=== PATIENT | male | born 1950 | race Caucasian/White ===

== ENCOUNTER 2017-11-07 22:49 | Emergency (ER) | payer MEDICARE, OTHER ==
[2017-11-07] MEDS ORDERED: cloNIDine 0.1 MG Tab PO ONE (23:38)
--- NOTE | 2017-11-07 23:39 | EDM.PDOC ---
ED HPI GENERAL MEDICAL PROBLEM - General Chief Complaint: Cardiovascular Problem Stated Complaint: BLOOD PRESSURE IS REALLY HIGH Time Seen by Provider: 11/07/17 23:01 Source of Information: Reports: Patient, Family History Limitations: Reports: No Limitations - History of Present Illness INITIAL COMMENTS - FREE TEXT/NARRATIVE: This is a 67-year-old male. He comes in tonight because his blood pressure at home was 200/100. This all came about because he has been having nasal congestion for the last several months. He states he uses Afrin nasal spray multiple times a day to open up his nose. He thought that maybe his losartan was causing this nasal congestion and so he stopped it about a week ago. It has not changed his nasal congestion at all. The patient states he has lots of allergies and that's why he uses the Afrin nasal spray. I explained to him that the nose gets addicted to the Afrin and that is why it stays congested. When he arrives to the ER his blood pressure is 165/89. He denies any fever or chills he denies any headache he denies any chest pain. The patient states he has not seen anyone for this nasal congestion and just been trying to treat it himself. But due to his blood pressure going up he comes to the ER. Around 9 PM this evening because his blood pressure was up he took a losartan 50 mg before coming to the ER. - Related Data Allergies Allergy/AdvReac Type Severity Reaction Status Date / Time No Known Allergies Allergy Verified 11/07/17 23:02 Home Meds: Home Meds Metoprolol Tartrate [Lopressor] 150 mg PO DAILY 10/17/15 [History] metFORMIN [Glucophage XR] 500 mg PO BID 10/17/15 [History] Aspirin 81 mg PO DAILY 11/07/17 [History] Cyanocobalamin/FA/Pyridoxine [Folbee] 1 each PO DAILY 11/07/17 [History] Losartan [Cozaar] 50 mg PO DAILY 11/07/17 [History] Amoxicillin/Potassium Clav [Augmentin 875-125 Tablet] 1 each PO BID #20 tablet 11/08/17 [Rx] Past Medical History Cardiovascular History: Reports: Hypertension - Past Surgical History Cardiovascular Surgical History: Reports: Coronary Artery Bypass Musculoskeletal Surgical History: Reports: Knee Replacement Social & Family History - Tobacco Use Smoking Status *Q: Former Smoker Used Tobacco, but Quit: Yes Month/Year Tobacco Last Used: 19 - Caffeine Use Caffeine Use: Reports: Soda - Recreational Drug Use Recreational Drug Use: No ED ROS GENERAL - Review of Systems Review Of Systems: See Below Constitutional: Denies: Fever, Chills HEENT: Reports: Rhinitis, Sinus Problem Respiratory: Denies: Shortness of Breath, Cough Cardiovascular: Denies: Chest Pain Endocrine: Reports: No Symptoms GI/Abdominal: Denies: Abdominal Pain, Nausea, Vomiting Skin: Reports: No Symptoms Neurological: Reports: No Symptoms Psychiatric: Reports: No Symptoms Hematologic/Lymphatic: Reports: No Symptoms ED EXAM, GENERAL - Physical Exam Exam: See Below Exam Limited By: No Limitations General Appearance: Alert, WD/WN, No Apparent Distress Eye Exam: Bilateral Eye: Normal Inspection Ears: Normal External Exam, Normal Canal, Normal TMs Nose: Nasal Swelling, Nasal Drainage, Other (His nasal passages are edematous, he has that typical smell of a sinus infection) Throat/Mouth: Normal Inspection, Normal Lips, Normal Oropharynx, Normal Voice, No Airway Compromise Head: Normocephalic Neck: Supple Respiratory/Chest: No Respiratory Distress, Lungs Clear, Normal Breath Sounds Cardiovascular: Regular Rate, Rhythm, No Murmur Back Exam: Full Range of Motion Extremities: Normal Inspection, Normal Range of Motion Neurological: Alert, Oriented Psychiatric: Normal Affect, Normal Mood Skin Exam: Warm, Dry Course - Vital Signs Last Recorded V/S: Last Vital Signs Temp 99.4 F 11/07/17 22:59 Pulse 75 11/08/17 00:23 Resp 16 11/08/17 00:23 BP 131/75 11/08/17 00:23 Pulse Ox 94 L 11/08/17 00:23 - Orders/Labs/Meds Meds: Medications Discontinued Medications Generic Name Dose Route Start Last Admin Trade Name Gary PRN Reason Stop Dose Admin Clonidine HCl 0.1 mg 11/07/17 23:38 11/07/17 23:42 Catapres PO 11/07/17 23:39 0.1 mg ONETIME ONE Administration - Re-Assessments/Exams Free Text/Narrative Re-Assessment/Exam: 11/08/17 00:36 The patient's blood pressure dropped very nicely to 135/78 with a 0.1 clonidine. He did blow his nose and his got yellow discharge noted. I went over again that he needs to stop the Afrin nasal spray and will put him on some Claritin without the D. He can also take some Chlor-Trimeton to help with the nasal congestion. And I'm going to place him on antibiotic for his sinus infection. He is going to resume his losartan. Departure - Departure Time of Disposition: 00:37 Disposition: Home, Self-Care 01 Condition: Fair Clinical Impression: Nasal congestion, Elevated blood pressure reading Acute sinusitis Qualifiers: Sinusitis location: unspecified location Recurrence: non-recurrent Qualified Code(s): J01.90 - Acute sinusitis, unspecified Prescriptions: Amoxicillin/Potassium Clav [Augmentin 875-125 Tablet] 1 each PO BID #20 tablet Referrals: PCP,None [Primary Care Provider] - Forms: ED Department Discharge Additional Instructions: Tomorrow get the antibiotic and started, resume your losartan and take it faithfully, stop the Afrin nasal spray and realized her nose is going to be congested for 4-5 days as it clears out of the Afrin nasal spray, you may use Claritin plain without the D and also Chlor-Trimeton to help with the nasal congestion, follow-up with your doctor if the nasal congestion does not resolve after the antibiotics are finished, return to the ER if needed
[2017-11-08 00:24] VITALS: BP 131/75
== END 2017-11-08 00:51 | disposition home or self-care (01) ==
LOC: JD.ED 22:49
DX: J01.90 Acute sinusitis, unspecified (principal); I10 Essential (primary) hypertension; Z79.84 Long term (current) use of oral hypoglycemic drugs; Z79.82 Long term (current) use of aspirin; Z79.899 Other long term (current) drug therapy; Z87.891 Personal history of nicotine dependence
CPT/HCPCS: 99283; A9270

== ENCOUNTER 2017-12-17 16:57 | Emergency (ER) | payer MEDICARE, OTHER ==
[2017-12-17 17:08] VITALS: BP 145/89
--- NOTE | 2017-12-17 17:10 | EDM.PDOC ---
ED HPI GENERAL MEDICAL PROBLEM - General Chief Complaint: Chest Pain Stated Complaint: CHEST PAINS/SHORTNESS OF BREATH Time Seen by Provider: 12/17/17 17:09 Source of Information: Reports: Patient - History of Present Illness INITIAL COMMENTS - FREE TEXT/NARRATIVE: Patient is here today for evaluation of chest and upper abdominal pain 2 weeks. He states that he has had this intermittently over the past 2 weeks he is unable to describe the nature other than this sharp and intermittent. Patient states that occasionally Mylanta will make this better. Activity does not worsen it. Occasionally gets worse if he eats. He denies any nausea/ vomiting/change in bowel habits currently but did have a episode of vomiting approximately 2 weeks ago after eating bologna and he feels that is when the symptoms started.. Has a history of CAD, had an ND with CABG in 1999. Chest Pain Score (Numeric/FACES): 5 Abdomen Pain Score (Numeric/FACES): 5 - Related Data Allergies Allergy/AdvReac Type Severity Reaction Status Date / Time cholestrol pill Allergy Hives Uncoded 12/17/17 17:04 Home Meds: Home Meds Metoprolol Tartrate [Lopressor] 100 mg PO DAILY 10/17/15 [History] metFORMIN [Glucophage XR] 500 mg PO BID 10/17/15 [History] Aspirin 81 mg PO DAILY 11/07/17 [History] Cyanocobalamin/FA/Pyridoxine [Folbee] 1 each PO DAILY 11/07/17 [History] Losartan [Cozaar] 50 mg PO DAILY 11/07/17 [History] Metoprolol Tartrate 50 mg PO DAILY 12/17/17 [History] Past Medical History Cardiovascular History: Reports: Hypertension - Past Surgical History Cardiovascular Surgical History: Reports: Coronary Artery Bypass Musculoskeletal Surgical History: Reports: Knee Replacement Social & Family History - Caffeine Use Caffeine Use: Reports: Soda ED ROS GENERAL - Review of Systems Review Of Systems: See Below Constitutional: Reports: Night Sweats. Denies: Fever, Chills, Malaise, Weakness , Fatigue, Diaphoresis, Decreased Appetite HEENT: Reports: No Symptoms Respiratory: Denies: Shortness of Breath, Pleuritic Chest Pain, Cough Cardiovascular: Reports: Chest Pain, Dyspnea on Exertion, Edema. Denies: Blood Pressure Problem, Claudication, Lightheadedness, Palpitations, PND, Syncope Endocrine: Reports: No Symptoms GI/Abdominal: Reports: Abdominal Pain. Denies: Constipation, Diarrhea, Decreased Appetite, Nausea, Vomiting : Reports: No Symptoms Musculoskeletal: Reports: No Symptoms Skin: Reports: No Symptoms Neurological: Reports: No Symptoms ED EXAM, GENERAL - Physical Exam Exam: See Below Exam Limited By: No Limitations General Appearance: Alert, WD/WN, No Apparent Distress Ears: Normal External Exam, Normal Canal, Normal TMs Throat/Mouth: Normal Inspection, Normal Oropharynx Neck: Normal Inspection, Supple, Non-Tender Respiratory/Chest: No Respiratory Distress, Lungs Clear, Normal Breath Sounds Cardiovascular: Regular Rate, Rhythm, No Murmur GI/Abdominal: Normal Bowel Sounds, Soft, Non-Tender Neurological: Alert, Oriented Psychiatric: Normal Affect, Normal Mood Skin Exam: Warm, Dry, Intact Lymphatic: No Adenopathy EKG INTERPRETATION EKG Date: 12/17/17 Time: 17:05 Rhythm: NSR Rate (Beats/Min): 73 EKG Interpretation Comments: Reviewed with Dr Ramirez Course - Vital Signs Last Recorded V/S: Last Vital Signs Temp 100.8 F H 12/17/17 17:04 Pulse 72 12/17/17 17:04 Resp 22 H 12/17/17 17:04 BP 145/89 H 12/17/17 17:04 Pulse Ox 96 12/17/17 17:04 - Orders/Labs/Meds Orders: Active Orders 24 hr Category Date Time Status CXR [Chest 2V] [CR] Stat Exams 12/17/17 17:26 Taken UA W/MICROSCOPIC [URIN] Stat Lab 12/17/17 18:57 Ordered Labs: Laboratory Tests 12/17/17 12/17/17 12/17/17 Range/Units 17:05 17:05 17:05 WBC 9.59 H (4.23-9.07) K/mm3 RBC 4.52 L (4.63-6.08) M/mm3 Hgb 14.4 (13.7-17.5) gm/L Hct 41.2 (40.1-51.0) % MCV 91.2 (79.0-92.2) fl MCH 31.9 (25.7-32.2) pg MCHC 35.0 (32.2-35.5) g/dl RDW Std Deviation 45.1 H (35.1-43.9) fL Plt Count 353 H (163-337) K/mm3 MPV 10.0 (9.4-12.3) fl Neutrophils % (Manual) 50 (40-60) % Band Neutrophils % 1 (0-10) % Lymphocytes % (Manual) 39 (20-40) % Atypical Lymphs % 0 % Monocytes % (Manual) 8 (2-10) % Eosinophils % (Manual) 2 (0.8-7.0) % Basophils % (Manual) 0 L (0.2-1.2) Platelet Estimate Adequate RBC Morph Comment Normal Sodium 134 L (136-145) mEq/L Potassium 4.3 (3.5-5.1) mEq/L Chloride 100 (98-107) mEq/L Carbon Dioxide 22 (21-32) mEq/L Anion Gap 16.3 H (5-15) BUN 11 (7-18) mg/dL Creatinine 1.1 (0.7-1.3) mg/dL Est Cr Clr Drug Dosing 63.91 mL/min Estimated GFR (MDRD) > 60 (>60) mL/min BUN/Creatinine Ratio 10.0 L (14-18) Glucose 102 (80-115) mg/dL Calcium 9.2 (8.5-10.1) mg/dL Magnesium 1.9 (1.8-2.4) mg/dl Total Bilirubin 0.5 (0.2-1.0) mg/dL GGT (15-85) U/L AST 58 H (15-37) U/L ALT 79 H (16-63) U/L Alkaline Phosphatase 64 (46-116) U/L Troponin I < 0.017 (0.00-0.056) ng/mL C-Reactive Protein < 0.2 (<1.0) mg/dL Total Protein 7.9 (6.4-8.2) g/dl Albumin 3.4 (3.4-5.0) g/dl Globulin 4.5 gm/dL Albumin/Globulin Ratio 0.8 L (1-2) Lipase 387 (73-393) U/L Urine Color (Yellow) Urine Appearance (Clear) Urine pH (5.0-8.0) Ur Specific [place] (1.005-1.030) Urine Protein (Negative) Urine Glucose (UA) (Negative) Urine Ketones (Negative) Urine Occult Blood (Negative) Urine Nitrite (Negative) Urine Bilirubin (Negative) Urine Urobilinogen (0.2-1.0) Ur Leukocyte Esterase (Negative) Urine RBC (0-5) /hpf Urine WBC (0-5) /hpf Ur Epithelial Cells (0-5) /hpf Urine Bacteria (FEW) /hpf Urine Mucus (FEW) /hpf 12/17/17 12/17/17 Range/Units 17:05 18:57 WBC (4.23-9.07) K/mm3 RBC (4.63-6.08) M/mm3 Hgb (13.7-17.5) gm/L Hct (40.1-51.0) % MCV (79.0-92.2) fl MCH (25.7-32.2) pg MCHC (32.2-35.5) g/dl RDW Std Deviation (35.1-43.9) fL Plt Count (163-337) K/mm3 MPV (9.4-12.3) fl Neutrophils % (Manual) (40-60) % Band Neutrophils % (0-10) % Lymphocytes % (Manual) (20-40) % Atypical Lymphs % % Monocytes % (Manual) (2-10) % Eosinophils % (Manual) (0.8-7.0) % Basophils % (Manual) (0.2-1.2) Platelet Estimate RBC Morph Comment Sodium (136-145) mEq/L Potassium (3.5-5.1) mEq/L Chloride (98-107) mEq/L Carbon Dioxide (21-32) mEq/L Anion Gap (5-15) BUN (7-18) mg/dL Creatinine (0.7-1.3) mg/dL Est Cr Clr Drug Dosing mL/min Estimated GFR (MDRD) (>60) mL/min BUN/Creatinine Ratio (14-18) Glucose (80-115) mg/dL Calcium (8.5-10.1) mg/dL Magnesium (1.8-2.4) mg/dl Total Bilirubin (0.2-1.0) mg/dL GGT 73 (15-85) U/L AST (15-37) U/L ALT (16-63) U/L Alkaline Phosphatase (46-116) U/L Troponin I (0.00-0.056) ng/mL C-Reactive Protein (<1.0) mg/dL Total Protein (6.4-8.2) g/dl Albumin (3.4-5.0) g/dl Globulin gm/dL Albumin/Globulin Ratio (1-2) Lipase (73-393) U/L Urine Color Yellow (Yellow) Urine Appearance Clear (Clear) Urine pH 5.5 (5.0-8.0) Ur Specific [place] > or = 1.030 (1.005-1.030) Urine Protein Negative (Negative) Urine Glucose (UA) Negative (Negative) Urine Ketones Negative (Negative) Urine Occult Blood Negative (Negative) Urine Nitrite Negative (Negative) Urine Bilirubin Negative (Negative) Urine Urobilinogen 0.2 (0.2-1.0) Ur Leukocyte Esterase Negative (Negative) Urine RBC 0-5 (0-5) /hpf Urine WBC 0-5 (0-5) /hpf Ur Epithelial Cells Not seen (0-5) /hpf Urine Bacteria Few (FEW) /hpf Urine Mucus Moderate H (FEW) /hpf Meds: Medications Discontinued Medications Generic Name Dose Route Start Last Admin Trade Name Freq PRN Reason Stop Dose Admin Al Hydroxide/Mg Hydroxide 30 0 ml 12/17/17 17:26 12/17/17 17:47 ml/ Lidocaine HCl 15 ml PO 12/17/17 17:27 45 ml ONETIME ONE Administration - Radiology Interpretation Free Text/Narrative:: CXR demonstrates mild cardiomegaly. Wires from previous CABG. No acute pathology or infiltrates. Official radiologist pending, CXR was reviewed with Dr Ramirez. - Re-Assessments/Exams Free Text/Narrative Re-Assessment/Exam: Patient's current pain is mild per his report and off to his left upper chest. It does not radiate. He is not diaphoretic or short of breath. States the pain is very mild and he declines medication for this. No acute changes on EKG. Will get basic lab work and troponin as well as chest x-ray. Will also have him drink a GI cocktail to see if this improves his pain. 12/17/17 17:41 WBC 9,590 with 50% neutrophils and 1% band. Troponin is negative. CRP <0.2. Lipase is normal. Liver enzymes are mildly elevated, patient reports that this is chronic and his PCP has evaluated this. Patient's symptoms are certainly more consistent with GERD/gastritis. Will have patient start [id number] omeprazole on a daily basis. He is to follow-up with his primary provider within the next week. Return to emergency room if needed. 12/17/17 19:34 Departure - Departure Time of Disposition: 19:37 Disposition: Home, Self-Care 01 Condition: Good Clinical Impression: Atypical chest pain, Epigastric abdominal pain Instructions: Food Choices for Gastroesophageal Reflux Disease, Adult, Easy-to- Read, Nonspecific Chest Pain Referrals: PCP,None [Primary Care Provider] - Forms: ED Department Discharge Additional Instructions: You were evaluated in the emergency room for chest and abdominal pain today. The workup of your heart was essentially negative. I would like to start [id number] Prilosec (omeprazole) 20 mg daily 30 minutes before breakfast. Avoid spicy or greasy foods. Try to limit your soda intake. Do not eat or drink 2 hours before bedtime. Follow-up with your primary provider within the next 1-2 weeks or certainly return to the emergency room if needed. - My Orders Last 24 Hours: My Active Orders 12/17/17 17:26 CXR [Chest 2V] [CR] Stat 12/17/17 18:57 UA W/MICROSCOPIC [URIN] Stat - Assessment/Plan Last 24 Hours: My Active Orders 12/17/17 17:26 CXR [Chest 2V] [CR] Stat 12/17/17 18:57 UA W/MICROSCOPIC [URIN] Stat
[2017-12-17] MEDS: Alum Hydrox/Mag Hydrox/Simeth 30 ML, Lidocaine 2% 15 ML PO ONE ×2 (17:47)
--- NOTE | 2017-12-18 06:56 | CR ---
Chest: Two views of the chest were obtained. Comparison: No prior chest x-ray is available. Heart size and mediastinum are within normal limits. Prior sternotomy is noted for CABG. Lungs are clear with no acute parenchymal densities. Bony structures appear within normal limits for the patient's age. Impression: 1. Nothing acute is appreciated on two-view chest x-ray. Diagnostic code #2
== END 2017-12-17 19:47 | disposition home or self-care (01) ==
LOC: JD.ED 16:57
DX: R07.89 Other chest pain (principal); R10.13 Epigastric pain; I10 Essential (primary) hypertension; I25.810 Atherosclerosis of coronary artery bypass graft(s) without angina pectoris; Z88.8 Allergy status to other drugs, medicaments and biological substances; Z79.899 Other long term (current) drug therapy; Z79.82 Long term (current) use of aspirin; Z79.84 Long term (current) use of oral hypoglycemic drugs
CPT/HCPCS: 36415; 71046; 80053; 81001; 82977; 83690; 83735; 84484; 85007; 85027; 86140; 93005; 99285; A9270

== ENCOUNTER 2020-04-13 06:27 | Day surgery (SDC) | payer MEDICARE, OTHER ==
[~2020-04-13 06:27] MED LIST: Lactated Ringers 1,000 ML IV SCH; Lidocaine 1%/Sod Bicarbonate in NS 8.4% 1 ML Syringe IDERM PRN; Sodium Chloride 0.9% 10 ML Syringe FLUSH PRN
[2020-04-13] MEDS ORDERED: Lidocaine 1% 4 ML ONE (06:39)
[2020-04-13] MEDS ORDERED: Midazolam 1 MG/ML 2 ML SDV ONE (06:39)
[2020-04-13] MEDS ORDERED: Lactated Ringers 1,000 ML ONE (06:39)
[2020-04-13] MEDS ORDERED: Propofol 200 MG/20 ML SDV ONE (06:39)
[2020-04-13] MEDS ORDERED: ceFAZolin 1 GM Vial ONE ×2 (06:39→07:32)
[2020-04-13] MEDS ORDERED: Ondansetron 4 MG/2 ML SDV ONE ×2 (06:39→07:19)
[2020-04-13] MEDS ORDERED: fentaNYL 250 MCG/5 ML SDV ONE (06:40)
[2020-04-13] MEDS ORDERED: Lidocaine 1% 2 ML ONE (06:40)
[2020-04-13] MEDS ORDERED: Bupivacaine 0.25% 10 ML SDV ONE (06:42)
[2020-04-13] MEDS ORDERED: Scopolamine 1.5 MG Transdermal Patch TOP SCH (06:42)
[2020-04-13] MEDS ORDERED: Ketamine 500 mg/10 ML MDV ONE (07:26)
[2020-04-13] MEDS ORDERED: Ondansetron 4 MG/2 ML SDV IVPUSH PRN (08:14)
[2020-04-13] MEDS ORDERED: HYDROmorphone 0.5 MG/0.5 ML Syringe IVPUSH PRN (08:14)
[2020-04-13] MEDS ORDERED: fentaNYL 100 MCG/2 ML SDV IVPUSH PRN (08:14)
--- NOTE | 2020-04-13 08:14 | PCM.PREANE ---
Preanesthetic Assessment - Procedure Proposed Procedure: Right Cubital Tunnel Release - Anesthesia/Transfusion/Family Hx Anesthesia History: Prior Anesthesia Reaction Type of Anesthesia Reaction: Excessive Nausea/Vomiting Family History of Anesthesia Reaction: No - Review of Systems General: No Symptoms Pulmonary: No Symptoms Cardiovascular: No Symptoms (Active with [place], Dyspnea with heavy activity. ), Other (CABG in 89 no symptoms since, follows with cardiology. ) Gastrointestinal: No Symptoms Neurological: Pre-Existing Deficit, Difficulty Walking (Spinal Stenosis, significant back pain. ) Other: Reports: None (Obesity) - Physical Assessment NPO Status Date: 04/12/20 NPO Status Time: 20:00 Vital Signs: Last Vital Signs Temp 36.3 C 04/13/20 06:35 Pulse 68 04/13/20 06:35 Resp 20 04/13/20 06:35 BP 150/82 H 04/13/20 06:35 Pulse Ox 95 04/13/20 06:35 Height: 1.73 m Weight: 118.841 kg ASA Class: 3 Mental Status: Alert & Oriented x3 Airway Class: Mallampati = 2 Dentition: Reports: [place](s), [place] Thyro-Mental Finger Breadths: 3 Mouth Opening Finger Breadths: 4 ROM/Head Extension: Full Lungs: Clear to Auscultation, Normal Respiratory Effort Cardiovascular: Regular Rate, Regular Rhythm, Murmurs - Lab Values: Laboratory Last Values POC Glucose 179 mg/dL (80-115) H 04/13/20 07:05 SARS-CoV-2 (PCR) Not detected (NOT DETECT) 04/10/20 12:00 MRSA (PCR) Negative 04/04/20 15:12 - Allergies Allergies/Adverse Reactions: Allergies Allergy/AdvReac Type Severity Reaction Status Date / Time fenofibrate Allergy Rash Verified 04/12/20 12:14 - Anesthesia Plan Pre-Op Medication Ordered: Anxiolytic Beta Baldomero: Metoprolol Med Last Dose Date: 04/13/20 Med Last Dose Time: 05:30 - Acknowledgements Anesthesia Type Planned: General Anesthesia Pt an Appropriate Candidate for the Planned Anesthesia: Yes Alternatives and Risks of Anesthesia Discussed w Pt/Guardian: Yes Pt/Guardian Understands and Agrees with Anesthesia Plan: Yes PreAnesthesia Questionnaire HEENT History: Reports: Allergic Rhinitis, Hard of Hearing Cardiovascular History: Reports: High Cholesterol, Hypertension Respiratory History: Reports: None Gastrointestinal History: Reports: None Genitourinary History: Reports: Other (See Below) Other Genitourinary History: frequency INSURANCE CHECKER History: Reports: None Neurological History: Reports: Other (See Below) Other Neuro History: spinal stenosis, cubital tunnel syndrome Psychiatric History: Reports: None Endocrine/Metabolic History: Reports: Diabetes, Type II, Obesity/BMI 30+ Hematologic History: Reports: Other (See Below) Other Hematologic History: easily bruises Immunologic History: Reports: None Oncologic (Cancer) History: Reports: None Dermatologic History: Reports: None - Infectious Disease History Infectious Disease History: Reports: None - Past Surgical History HEENT Surgical History: Reports: None Cardiovascular Surgical History: Reports: Coronary Artery Bypass Respiratory Surgical History: Reports: None GI Surgical History: Reports: None Female Surgical History: Reports: None Male Surgical History: Reports: None Endocrine Surgical History: Reports: None Neurological Surgical History: Reports: None Musculoskeletal Surgical History: Reports: Knee Replacement Oncologic Surgical History: Reports: None Dermatological Surgical History: Reports: None - SUBSTANCE USE Smoking Status *Q: Former Smoker Recreational Drug Use History: No - HOME MEDS Home Medications: Home Meds Metoprolol Tartrate [Lopressor] 150 mg PO DAILY 10/17/15 [History] metFORMIN [Glucophage XR] 500 mg PO BID 10/17/15 [History] Aspirin 81 mg PO DAILY 11/07/17 [History] Cyanocobalamin/Folic AC/Vit B6 [Folbee] 1 each PO DAILY 11/07/17 [History] Losartan [Cozaar] 50 mg PO DAILY 11/07/17 [History] Amoxicillin 500 mg PO ASDIRECTED PRN 04/12/20 [History] Acetaminophen/HYDROcodone [[place] 325-5 MG] 1 - 2 tab PO Q6H PRN #30 tablet 04/13/20 [Rx] - CURRENT (IN HOUSE) MEDS Current Meds: Current Medications Lactated Ringer's (Ringers, Lactated) 1,000 mls @ 125 mls/hr IV ASDIRECTED HALLEY Stop: 04/13/20 23:00 Last Admin: 04/13/20 07:00 Dose: 125 mls/hr Documented by: Lidocaine/Sodium Bicarbonate (Buffered Lidocaine 1% In Ns 8.4%) 0.25 ml IDERM ONETIME PRN PRN Reason: Prior to IV Start Stop: 04/13/20 18:00 Last Admin: 04/13/20 07:54 Dose: 0.25 ml Documented by: Scopolamine (Transderm-Scop) 1.5 mg TOP ONETIME HALLEY Last Admin: 04/13/20 07:03 Dose: 1.5 mg Documented by: Sodium Chloride (Saline Flush) 10 ml FLUSH ASDIRECTED PRN PRN Reason: Keep Vein Open Stop: 04/13/20 18:00 Discontinued Medications Bupivacaine HCl (Sensorcaine-Mpf 0.25%) Confirm Administered Dose 20 ml .ROUTE .STK-MED ONE Stop: 04/13/20 06:43 Cefazolin Sodium (Ancef) Confirm Administered Dose 2 gm .ROUTE .STK-MED ONE Stop: 04/13/20 06:40 Cefazolin Sodium (Ancef) Confirm Administered Dose 1 gm .ROUTE .STK-MED ONE Stop: 04/13/20 07:33 Fentanyl (Sublimaze) Confirm Administered Dose 250 mcg .ROUTE .STK-MED ONE Stop: 04/13/20 06:41 Lidocaine HCl (Xylocaine-Mpf 1%) Confirm Administered Dose 4 mls @ as directed .ROUTE .STK-MED ONE Stop: 04/13/20 06:40 Lactated Ringer's (Ringers, Lactated) Confirm Administered Dose 1,000 mls @ as directed .ROUTE .STK-MED ONE Stop: 04/13/20 06:40 Lidocaine HCl (Xylocaine-Mpf 1%) Confirm Administered Dose 2 mls @ as directed .ROUTE .STK-MED ONE Stop: 04/13/20 06:41 Ketamine HCl (Ketalar) Confirm Administered Dose 500 mg .ROUTE .STK-MED ONE Stop: 04/13/20 07:27 Midazolam HCl (Versed 1 Mg/Ml) Confirm Administered Dose 2 mg .ROUTE .STK-MED ONE Stop: 04/13/20 06:40 Miscellaneous Medication (Phenylephrine 1 Mg/10 Ml-Ns) Confirm Administered Dose 1 mg .ROUTE .STK-MED ONE Stop: 04/13/20 07:25 Ondansetron HCl (Zofran) Confirm Administered Dose 4 mg .ROUTE .STK-MED ONE Stop: 04/13/20 06:40 Ondansetron HCl (Zofran) Confirm Administered Dose 4 mg .ROUTE .STK-MED ONE Stop: 04/13/20 07:20 Propofol (Diprivan 20 Ml) Confirm Administered Dose 400 mg .ROUTE .[facility] ONE Stop: 04/13/20 06:40
[2020-04-13 09:44] VITALS: BP 136/76; PULSE 60
--- NOTE | 2020-04-13 10:26 | PCM48HPAN ---
Post Anesthesia Note - EVALUATION WITHIN 48HRS OF ANESTHETIC Vital Signs in Normal Range: Yes Patient Participated in Evaluation: Yes Respiratory Function Stable: Yes Airway Patent: Yes Cardiovascular Function Stable: Yes Hydration Status Stable: Yes Pain Control Satisfactory: Yes Nausea and Vomiting Control Satisfactory: Yes Mental Status Recovered: Yes Vital Signs: Last Vital Signs Temp 36.7 C 04/13/20 09:15 Pulse 60 04/13/20 09:43 Resp 16 04/13/20 09:43 BP 136/76 04/13/20 09:43 Pulse Ox 96 04/13/20 09:43
--- NOTE | 2020-04-17 17:08 | PCM.OPNOTE ---
- General Post-Op/Procedure Note Date of Surgery/Procedure: 04/13/20 Operative Procedure(s): right ulnar nerve decompression at the elbow Pre Op Diagnosis: right cubital tunnel syndrome Post-Op Diagnosis: Same Anesthesia Technique: General LMA, Local Primary Surgeon: Victoriano Loaiza Anesthesia Provider: Ade Parker Marketing Producer: Kelsi Mendoza in mLs: 5 Complications: None Condition: Good
--- NOTE | 2020-04-20 07:59 | OR ---
DATE OF OPERATION: 04/13/2020 SURGEON: Victoriano Loaiza MD OPERATION PERFORMED: Right ulnar nerve decompression at the elbow. PREOPERATIVE DIAGNOSIS: Right cubital tunnel syndrome. POSTOPERATIVE DIAGNOSIS: Right cubital tunnel syndrome. ANESTHESIA: General LMA with local. ANESTHESIA PROVIDER: Heather Kilpatrick. TECHNICAL RECRUITER: Kelsi Mendoza PA-C. ESTIMATED BLOOD LOSS: 5 mL. COMPLICATIONS: None. CONDITION: Stable. DESCRIPTION OF PROCEDURE: The patient was identified in the preoperative holding area. Proper site was marked and identified by the surgeon. The patient was taken back to the operating theater, where after adequate anesthesia the patient had a nonsterile tourniquet applied to the right upper extremity. He was then sterilely prepped and draped in the usual sterile fashion. OR time-out was performed. The patient received 2 g IV Ancef. Right upper extremity was exsanguinated. Tourniquet was insufflated to 220 mmHg. Standard curvilinear incision was done over the cubital tunnel up to the triceps fascia. The nerve was identified up to the triceps fascia and decompression of the nerve was began up to triceps fascia, making sure proximally that it was free. This was brought down then to the cubital tunnel where the fiber osseous tunnel was opened all the way down to the flexor forearm fascia. It was noted to be completely freed up and had severe scarring noted near the cubital tunnel as well up near the triceps fascia. I did remove a portion of the triceps fascia as it did seem to be catching on. At this time, I brought the elbow through a range of motion. The patient's ulnar nerve was showing no signs of subluxation, so adequate saline was irrigated through the wound. 2-0 Vicryl was used subcutaneously and grace used for closure of the skin. The patient was placed in a sterile soft dressing and a posterior slab splint, and sent to the PACU in stable condition. MMODAL /[id number]
== END 2020-04-13 10:25 | disposition home or self-care (01) ==
LOC: JD.SDS 06:27
PROVIDERS: ATTEND Orthopaedic Surgery
DX: G56.23 Lesion of ulnar nerve, bilateral upper limbs (principal); E78.00 Pure hypercholesterolemia, unspecified; I10 Essential (primary) hypertension; E11.9 Type 2 diabetes mellitus without complications; E66.9 Obesity, unspecified; R97.20 Elevated prostate specific antigen [PSA]; I25.10 Atherosclerotic heart disease of native coronary artery without angina pectoris; Z01.812 Encounter for preprocedural laboratory examination; Z20.828 Contact with and (suspected) exposure to other viral communicable diseases; Z88.8 Allergy status to other drugs, medicaments and biological substances; Z87.891 Personal history of nicotine dependence; Z79.899 Other long term (current) drug therapy; Z79.84 Long term (current) use of oral hypoglycemic drugs; Z79.82 Long term (current) use of aspirin
CPT/HCPCS: 64718; 82962; 87641; A9270; J0690; J2001; J2250; J2370; J2405; J2704; J3010; J3490; J7120; U0002; 01710

== ENCOUNTER 2022-10-30 17:23 | Emergency (ER) | payer MEDICARE, OTHER ==
[2022-10-30 17:35] VITALS: BP 147/65; PULSE 84
[2022-10-30] MEDS ORDERED: Sodium Chloride 0.9% 10 ML Syringe FLUSH PRN (18:16)
[2022-10-30] MEDS ORDERED: Levofloxacin/Dextrose 5%-Water 750 MG in Premix Bag 1 BAG IV ONE (19:32)
[2022-10-30] MEDS ORDERED: Levofloxacin 750 MG Tab PO ONE (19:36)
== END 2022-10-30 20:30 | disposition home or self-care (01) ==
LOC: JD.ED 17:23
DX: N30.01 Acute cystitis with hematuria (principal); N45.3 Epididymo-orchitis; N43.3 Hydrocele, unspecified; E78.00 Pure hypercholesterolemia, unspecified; I10 Essential (primary) hypertension; N40.0 Benign prostatic hyperplasia without lower urinary tract symptoms; E11.9 Type 2 diabetes mellitus without complications; E66.9 Obesity, unspecified; Z88.8 Allergy status to other drugs, medicaments and biological substances; Z86.16 Personal history of COVID-19; Z95.1 Presence of aortocoronary bypass graft; Z68.41 Body mass index [BMI] 40.0-44.9, adult
CPT/HCPCS: 36415; 76870; 80053; 81001; 85025; 86140; 87086; 93975; 99284; A9270

== ENCOUNTER 2023-03-22 13:53 | Emergency (ER) | payer MEDICARE, OTHER ==
[2023-03-22 14:39] LABS: BASOPHILS ABSOLUTE AUTO 0.1 K/mm3 (0.0-0.2); BASOPHILS PERCENT AUTO 1.1 % (0.0-1.0); EOSINOPHILS ABSOLUTE AUTO 0.2 K/mm3 (0.0-0.4); EOSINOPHILS PERCENT AUTO 4.2 % (0.0-6.0); HEMATOCRIT 33.4 % (42.0-52.0); HEMOGLOBIN 11.8 gm/dl (14.0-18.0); IMMATURE GRAN ABSOLUTE AUTO 0.01 K/mm3 (0.00-0.05); IMMATURE GRAN PERCENT AUTO 0.2 % (0.0-0.4); LYMPHOCYTES ABSOLUTE AUTO 1.8 K/mm3 (1.0-4.8); LYMPHOCYTES PERCENT AUTO 34.5 % (24.0-44.0); MEAN CORPUSCULAR HEMOGLOBIN 31.5 pg (28.0-32.0); MEAN CORPUSCULAR HGB CONC 35.3 g/dl (32.0-36.0); MEAN CORPUSCULAR VOLUME 89.1 fl (83.0-99.0); MEAN PLATELET VOLUME 9.8 fl (9.4-12.4); MONOCYTES ABSOLUTE AUTO 0.5 K/mm3 (0.0-0.8); MONOCYTES PERCENT AUTO 9.6 % (0.0-8.0); NEUTROPHILS ABSOLUTE AUTO 2.6 K/mm3 (1.8-7.7); NEUTROPHILS PERCENT AUTO 50.4 % (41.0-71.0); PLATELET COUNT,PLT 165 K/mm3 (150-400); RED BLOOD CELL COUNT 3.75 M/mm3 (4.52-5.90); WHITE BLOOD CELL COUNT,WBC 5.22 K/mm3 (3.9-11.3)
[2023-03-22 15:01] LABS: A/G RATIO 0.7 (1-2); ALBUMIN 3.1 g/dl (3.4-5.0); ANION GAP 17.2 (5-15); BILIRUBIN TOTAL 0.6 mg/dL (0.2-1.0); BUN/CREATININE RATIO 16.4 (14-18); CALCIUM 8.9 mg/dL (8.5-10.1); CREATININE 1.1 mg/dL (0.7-1.3); EST CRCL DRUG DOSING (CG) 59.59 mL/min; MAGNESIUM 1.5 mg/dL (1.8-2.4); POTASSIUM,K 4.2 mEq/L (3.5-5.1); PROTEIN TOTAL,TP 7.5 g/dl (6.4-8.2)
[2023-03-22] MEDS ORDERED: Magnesium Oxide 400 MG Tab PO ONE (15:07)
[2023-03-22 16:57] VITALS: BP 122/76; PULSE 67
== END 2023-03-22 16:53 | disposition home or self-care (01) ==
LOC: JD.ED 13:53
DX: R25.2 Cramp and spasm (principal); E83.42 Hypomagnesemia; E78.00 Pure hypercholesterolemia, unspecified; I10 Essential (primary) hypertension; E11.9 Type 2 diabetes mellitus without complications; E66.9 Obesity, unspecified; Z68.39 Body mass index [BMI] 39.0-39.9, adult; Z86.16 Personal history of COVID-19; Z95.1 Presence of aortocoronary bypass graft; Z91.013 Allergy to seafood; Z88.8 Allergy status to other drugs, medicaments and biological substances; Z79.82 Long term (current) use of aspirin; Z79.899 Other long term (current) drug therapy
CPT/HCPCS: 36415; 80053; 83735; 85025; 93971; 99284; A9270

== ENCOUNTER 2024-01-17 09:48 | Emergency (ER) | payer MEDICARE, OTHER ==
[2024-01-17 11:01] LABS: BASOPHILS PERCENT AUTO 0.5 % (0.0-1.0); EOSINOPHILS PERCENT AUTO 0.6 % (0.0-6.0); HEMATOCRIT 34.9 % (42.0-52.0); HEMOGLOBIN 11.7 gm/dl (14.0-18.0); IMMATURE GRAN ABSOLUTE AUTO 0.04 K/mm3 (0.00-0.05); IMMATURE GRAN PERCENT AUTO 0.6 % (0.0-0.4); LYMPHOCYTES ABSOLUTE AUTO 0.5 K/mm3 (1.0-4.8); LYMPHOCYTES PERCENT AUTO 7.2 % (24.0-44.0); MEAN CORPUSCULAR HEMOGLOBIN 31.7 pg (28.0-32.0); MEAN CORPUSCULAR HGB CONC 33.5 g/dl (32.0-36.0); MEAN PLATELET VOLUME 10.1 fl (9.4-12.4); MONOCYTES ABSOLUTE AUTO 0.9 K/mm3 (0.0-0.8); MONOCYTES PERCENT AUTO 13.9 % (0.0-8.0); NEUTROPHILS ABSOLUTE AUTO 4.8 K/mm3 (1.8-7.7); NEUTROPHILS PERCENT AUTO 77.2 % (41.0-71.0); PLATELET COUNT,PLT 137 K/mm3 (150-400); RED BLOOD CELL COUNT 3.69 M/mm3 (4.52-5.90); WHITE BLOOD CELL COUNT,WBC 6.27 K/mm3 (3.9-11.3)
[2024-01-17 11:16] LABS: LACTIC ACID 3.1 mmol/L (0.4-2.0)
[2024-01-17 11:18] LABS: MEAN CORPUSCULAR VOLUME 94.6 fl (83.0-99.0)
[2024-01-17 11:21] LABS: A/G RATIO 0.7 (1-2); ALBUMIN 2.8 g/dl (3.4-5.0); ANION GAP 15.1 (5-15); BILIRUBIN TOTAL 1.3 mg/dL (0.2-1.0); C-REACTIVE PROTEIN 7.33 mg/dL (<0.30); EST CRCL DRUG DOSING (CG) 64.6 mL/min; MAGNESIUM 1.3 mg/dL (1.8-2.4); POTASSIUM,K 4.1 mEq/L (3.5-5.1); PROTEIN TOTAL,TP 6.9 g/dl (6.4-8.2)
[2024-01-17] MEDS: Sodium Chloride 0.9% 1,000 ML IV SCH ×2 (11:21→12:07)
[2024-01-17] MEDS: Aspirin 81 MG Tab.Chew PO ONE (11:27)
[2024-01-17 11:30] LABS: APPEARANCE,URINE SLT CLOUDY (Clear); BILIRUBIN,URINE NEGATIVE (Negative); COLOR,URINE DARK YELLOW (Yellow); GLUCOSE,URINE NEGATIVE (Negative); KETONES,URINE TRACE (Negative); LEUKOCYTE ESTERASE,URINE 1+ (Negative); NITRITE,URINE POSITIVE (Negative); OCCULT BLOOD,URINE TRACE-INTACT (Negative); PROTEIN,URINE 1+ (Negative); UROBILINOGEN,URINE 0.2 (0.2-1.0)
[2024-01-17 11:48] LABS: WBC,URINE 40-50 /hpf (0-5)
[2024-01-17] MEDS ORDERED: Furosemide 20 MG/2 ML VIAL IVPUSH ONE (11:48)
[2024-01-17 11:49] LABS: BACTERIA,URINE MANY /hpf (FEW); MUCUS,URINE FEW /hpf (FEW)
[2024-01-17] MEDS: cefTRIAXone 2 GM in Sodium Chloride 0.9% 100 ML IV ONE (12:07)
[2024-01-17 14:36] VITALS: BP 107/70; PULSE 72
== END 2024-01-17 13:50 | disposition home or self-care (01) ==
LOC: JD.ED 09:48
DX: I11.0 Hypertensive heart disease with heart failure (principal); I50.9 Heart failure, unspecified; N30.01 Acute cystitis with hematuria; N41.9 Inflammatory disease of prostate, unspecified; N45.3 Epididymo-orchitis; T50.905A Adverse effect of unspecified drugs, medicaments and biological substances, initial encounter; I25.10 Atherosclerotic heart disease of native coronary artery without angina pectoris; E11.9 Type 2 diabetes mellitus without complications; E66.9 Obesity, unspecified; Z86.16 Personal history of COVID-19; Z79.899 Other long term (current) drug therapy; Z79.84 Long term (current) use of oral hypoglycemic drugs; Z88.8 Allergy status to other drugs, medicaments and biological substances; Z91.013 Allergy to seafood
CPT/HCPCS: 36415; 51798; 71045; 80053; 81001; 83036; 83605; 83735; 83880; 84484; 85025; 86140; 87086; 93005; 96361; 96365; 99285; A9270; J0696; J3490; J7030; 87088; 87186

== ENCOUNTER 2024-04-12 23:19 | Emergency (ER) | payer MEDICARE, OTHER ==
[2024-04-12 23:55] LABS: APPEARANCE,URINE CLEAR (Clear); BILIRUBIN,URINE NEGATIVE (Negative); COLOR,URINE YELLOW (Yellow); GLUCOSE,URINE NEGATIVE (Negative); KETONES,URINE 1+ (Negative); LEUKOCYTE ESTERASE,URINE 1+ (Negative); NITRITE,URINE NEGATIVE (Negative); OCCULT BLOOD,URINE NEGATIVE (Negative); PH,URINE 5.5 (5.0-8.0); PROTEIN,URINE NEGATIVE (Negative); UROBILINOGEN,URINE 0.2 (0.2-1.0)
[2024-04-13 00:06] LABS: BACTERIA,URINE RARE /hpf (FEW); EPITHELIAL CELLS,URINE 0-5 /hpf (0-5); MUCUS,URINE NOT SEEN /hpf (FEW); RBC,URINE 0-5 /hpf (0-5)
[2024-04-13] MEDS: Furosemide 40 MG/4 ML VIAL IVPUSH ONE (00:13)
[2024-04-13] MEDS: Sodium Chloride 0.9% 10 ML Syringe FLUSH PRN (00:13)
[2024-04-13 00:39] LABS: BASOPHILS PERCENT AUTO 0.4 % (0.0-1.0); EOSINOPHILS PERCENT AUTO 0.4 % (0.0-6.0); HEMATOCRIT 24.2 % (42.0-52.0); IMMATURE GRAN ABSOLUTE AUTO 0.03 K/mm3 (0.00-0.05); IMMATURE GRAN PERCENT AUTO 0.6 % (0.0-0.4); LYMPHOCYTES ABSOLUTE AUTO 0.6 K/mm3 (1.0-4.8); LYMPHOCYTES PERCENT AUTO 11.4 % (24.0-44.0); MEAN CORPUSCULAR HEMOGLOBIN 30.2 pg (28.0-32.0); MEAN CORPUSCULAR HGB CONC 31.8 g/dl (32.0-36.0); MEAN CORPUSCULAR VOLUME 94.9 fl (83.0-99.0); MONOCYTES ABSOLUTE AUTO 0.4 K/mm3 (0.0-0.8); MONOCYTES PERCENT AUTO 7.8 % (0.0-8.0); NEUTROPHILS ABSOLUTE AUTO 4.2 K/mm3 (1.8-7.7); NEUTROPHILS PERCENT AUTO 79.4 % (41.0-71.0); PLATELET COUNT,PLT 217 K/mm3 (150-400); RED BLOOD CELL COUNT 2.55 M/mm3 (4.52-5.90); WHITE BLOOD CELL COUNT,WBC 5.27 K/mm3 (3.9-11.3)
[2024-04-13 00:55] LABS: HEMOGLOBIN 7.7 gm/dl (14.0-18.0)
[2024-04-13 01:03] LABS: A/G RATIO 0.9 (1-2); ALANINE AMINOTRANSFERASE,ALT 34 U/L (16-63); ALKALINE PHOSPHATASE 48 U/L (46-116); ANION GAP 20.7 (5-15); ASPARTATE AMNIOTRANSFERASE,AST 35 U/L (15-37); BILIRUBIN TOTAL 0.4 mg/dL (0.2-1.0); BLOOD UREA NITROGEN,BUN 19 mg/dL (7-18); BUN/CREATININE RATIO 15.8 (14-18); CALCIUM 8.9 mg/dL (8.5-10.1); CARBON DIOXIDE,CO2 17 mEq/L (21-32); CHLORIDE,CL 105 mEq/L (98-107); CREATININE 1.2 mg/dL (0.7-1.3); ESTIMATED GFR 64 mL/min (>60); GLUCOSE RANDOM 220 mg/dL (70-99); MAGNESIUM 1.3 mg/dL (1.8-2.4); POTASSIUM,K 4.7 mEq/L (3.5-5.1); PROTEIN TOTAL,TP 6.5 g/dl (6.4-8.2); SODIUM,NA 138 mEq/L (136-145)
[2024-04-13 01:04] LABS: TROPONIN I HIGH SENSITIVITY 367 pg/mL (<=76)
[2024-04-13] MEDS: Pantoprazole 40 MG Vial IVPUSH ONE (01:58)
[2024-04-13] MEDS: Iopamidol 612 MG/ML 100 ML Bottle IVPUSH ONE (02:08)
[2024-04-13] MEDS: Magnesium Sulfate/Water Premix 2 GM in Premix Bag 1 BAG IV ONE (02:11)
[2024-04-13 03:41] LABS: INR 1.03; PROTHROMBIN TIME 10.9 SECONDS (9.7-12.0)
[2024-04-13 03:43] LABS: PTT,PARTIAL THROMBOPLSTIN TIME 22.5 SECONDS (21.7-31.4)
[2024-04-13] MEDS: Pantoprazole 80 MG in Sodium Chloride 0.9% 100 ML IV SCH (05:15)
[2024-04-13] MEDS: Sodium Chloride 0.9% 250 ML ONE (05:48)
[2024-04-13] MEDS: Sodium Chloride 0.9% 250 ML IV SCH (05:49)
[2024-04-13 08:09] VITALS: BP 152/83; PULSE 74
== END 2024-04-13 11:30 ==
LOC: JD.ED 23:19
DX: I21.4 Non-ST elevation (NSTEMI) myocardial infarction (principal); K92.2 Gastrointestinal hemorrhage, unspecified; D64.89 Other specified anemias; I85.00 Esophageal varices without bleeding; K74.69 Other cirrhosis of liver; I11.0 Hypertensive heart disease with heart failure; I50.9 Heart failure, unspecified; I25.10 Atherosclerotic heart disease of native coronary artery without angina pectoris; I25.2 Old myocardial infarction; E78.00 Pure hypercholesterolemia, unspecified; E11.51 Type 2 diabetes mellitus with diabetic peripheral angiopathy without gangrene; E66.9 Obesity, unspecified; Z95.1 Presence of aortocoronary bypass graft; Z87.891 Personal history of nicotine dependence; Z86.16 Personal history of COVID-19; Z79.899 Other long term (current) drug therapy; Z79.84 Long term (current) use of oral hypoglycemic drugs; Z88.8 Allergy status to other drugs, medicaments and biological substances; Z91.013 Allergy to seafood
CPT/HCPCS: 36415; 36430; 71046; 74177; 80053; 81001; 82272; 83735; 83880; 84484; 85025; 85610; 85730; 86850; 86900; 86901; 86922; 87086; 87088; 87186; 93005; 96361; 96365; 96366; 96367; 96375; 96376; 99285; J1940; J2470; J3475; J3490; J7050; P9016; Q9967

== ENCOUNTER 2024-04-26 17:08 | Emergency (ER) | payer MEDICARE, OTHER ==
[2024-04-26 18:24] LABS: BASOPHILS PERCENT AUTO 0.6 % (0.0-1.0); EOSINOPHILS PERCENT AUTO 0.6 % (0.0-6.0); HEMATOCRIT 25.7 % (42.0-52.0); HEMOGLOBIN 8.3 gm/dl (14.0-18.0); IMMATURE GRAN ABSOLUTE AUTO 0.01 K/mm3 (0.00-0.05); IMMATURE GRAN PERCENT AUTO 0.2 % (0.0-0.4); LYMPHOCYTES ABSOLUTE AUTO 0.6 K/mm3 (1.0-4.8); LYMPHOCYTES PERCENT AUTO 12.3 % (24.0-44.0); MEAN CORPUSCULAR HGB CONC 32.3 g/dl (32.0-36.0); MEAN CORPUSCULAR VOLUME 89.9 fl (83.0-99.0); MEAN PLATELET VOLUME 10.5 fl (9.4-12.4); MONOCYTES ABSOLUTE AUTO 0.4 K/mm3 (0.0-0.8); MONOCYTES PERCENT AUTO 8.7 % (0.0-8.0); NEUTROPHILS ABSOLUTE AUTO 3.9 K/mm3 (1.8-7.7); NEUTROPHILS PERCENT AUTO 77.6 % (41.0-71.0); PLATELET COUNT,PLT 220 K/mm3 (150-400); RED BLOOD CELL COUNT 2.86 M/mm3 (4.52-5.90); WHITE BLOOD CELL COUNT,WBC 4.97 K/mm3 (3.9-11.3)
[2024-04-26 18:51] LABS: A/G RATIO 0.8 (1-2); ALBUMIN 2.9 g/dl (3.4-5.0); ANION GAP 20.5 (5-15); BILIRUBIN TOTAL 0.4 mg/dL (0.2-1.0); BUN/CREATININE RATIO 17.9 (14-18); CALCIUM 8.6 mg/dL (8.5-10.1); CREATININE 1.4 mg/dL (0.7-1.3); EST CRCL DRUG DOSING (CG) 46.14 mL/min; POTASSIUM,K 4.5 mEq/L (3.5-5.1); PROTEIN TOTAL,TP 6.4 g/dl (6.4-8.2)
[2024-04-26 19:08] LABS: CORONAVIRUS COVID-19 NAA NEGATIVE (NEGATIVE); INFLUENZA A NAA NEGATIVE (NEGATIVE); RESPIRATORY SYNCYTIAL VIR NAA NEGATIVE (NEGATIVE)
[2024-04-26 19:42] LABS: APPEARANCE,URINE CLEAR (Clear); BILIRUBIN,URINE NEGATIVE (Negative); COLOR,URINE YELLOW (Yellow); GLUCOSE,URINE NEGATIVE (Negative); KETONES,URINE 1+ (Negative); LEUKOCYTE ESTERASE,URINE NEGATIVE (Negative); NITRITE,URINE NEGATIVE (Negative); OCCULT BLOOD,URINE TRACE-LYSED (Negative); PH,URINE 5.5 (5.0-8.0); PROTEIN,URINE 1+ (Negative); UROBILINOGEN,URINE 0.2 (0.2-1.0)
[2024-04-26 20:15] LABS: BACTERIA,URINE RARE /hpf (FEW); EPITHELIAL CELLS,URINE 0-5 /hpf (0-5); MUCUS,URINE FEW /hpf (FEW); RBC,URINE NOT SEEN /hpf (0-5)
[2024-04-26] MEDS: Furosemide 40 MG/4 ML VIAL IVPUSH ONE (20:18)
[2024-04-26] MEDS: Sodium Chloride 0.9% 10 ML Syringe FLUSH PRN (20:18)
[2024-04-26] MEDS: Lidocaine 2% 11 ML Jelly Filled Syringe MUCMEM ONE (22:10)
[2024-04-26] MEDS: Metoprolol Tartrate 50 MG Tab PO ONE (22:10)
[2024-04-26] MEDS: Levofloxacin 500 MG Tab PO ONE (22:10)
[2024-04-26] MEDS: metFORMIN 500 MG Tab PO ONE (22:18)
[2024-04-27 00:09] VITALS: BP 120/76; PULSE 67
== END 2024-04-26 23:40 | disposition home or self-care (01) ==
LOC: JD.ED 17:08
DX: I35.0 Nonrheumatic aortic (valve) stenosis (principal); D64.89 Other specified anemias; K92.2 Gastrointestinal hemorrhage, unspecified; R33.9 Retention of urine, unspecified; N21.0 Calculus in bladder; I11.0 Hypertensive heart disease with heart failure; I50.9 Heart failure, unspecified; I25.10 Atherosclerotic heart disease of native coronary artery without angina pectoris; I25.2 Old myocardial infarction; E78.00 Pure hypercholesterolemia, unspecified; E11.9 Type 2 diabetes mellitus without complications; E66.9 Obesity, unspecified; Z95.5 Presence of coronary angioplasty implant and graft; Z86.16 Personal history of COVID-19; Z79.84 Long term (current) use of oral hypoglycemic drugs; Z79.899 Other long term (current) drug therapy; Z88.8 Allergy status to other drugs, medicaments and biological substances; Z91.013 Allergy to seafood; Z68.41 Body mass index [BMI] 40.0-44.9, adult
CPT/HCPCS: 0241U; 36415; 51702; 71045; 80053; 81001; 82272; 83880; 84484; 85025; 93005; 93970; 96374; 99285; A9270; J1940; J3490; 93010; 99284

== ENCOUNTER 2024-04-27 09:30 | Emergency (ER) | payer MEDICARE, OTHER ==
[2024-04-27] MEDS ORDERED: Sodium Chloride 0.9% 10 ML Syringe FLUSH PRN (10:01)
[2024-04-27 10:34] LABS: APPEARANCE,URINE SLT CLOUDY (Clear); BASOPHILS PERCENT AUTO 0.6 % (0.0-1.0); BILIRUBIN,URINE NEGATIVE (Negative); COLOR,URINE YELLOW (Yellow); EOSINOPHILS ABSOLUTE AUTO 0.1 K/mm3 (0.0-0.4); EOSINOPHILS PERCENT AUTO 1.8 % (0.0-6.0); GLUCOSE,URINE NEGATIVE (Negative); HEMATOCRIT 25.8 % (42.0-52.0); HEMOGLOBIN 8.2 gm/dl (14.0-18.0); IMMATURE GRAN ABSOLUTE AUTO 0.01 K/mm3 (0.00-0.05); IMMATURE GRAN PERCENT AUTO 0.2 % (0.0-0.4); KETONES,URINE NEGATIVE (Negative); LEUKOCYTE ESTERASE,URINE 1+ (Negative); LYMPHOCYTES ABSOLUTE AUTO 0.5 K/mm3 (1.0-4.8); LYMPHOCYTES PERCENT AUTO 10.2 % (24.0-44.0); MEAN CORPUSCULAR HEMOGLOBIN 28.5 pg (28.0-32.0); MEAN CORPUSCULAR HGB CONC 31.8 g/dl (32.0-36.0); MEAN CORPUSCULAR VOLUME 89.6 fl (83.0-99.0); MEAN PLATELET VOLUME 9.7 fl (9.4-12.4); MONOCYTES ABSOLUTE AUTO 0.6 K/mm3 (0.0-0.8); MONOCYTES PERCENT AUTO 11.2 % (0.0-8.0); NEUTROPHILS ABSOLUTE AUTO 3.7 K/mm3 (1.8-7.7); NITRITE,URINE NEGATIVE (Negative); OCCULT BLOOD,URINE 3+ (Negative); PH,URINE 5.5 (5.0-8.0); PLATELET COUNT,PLT 230 K/mm3 (150-400); PROTEIN,URINE 1+ (Negative); RED BLOOD CELL COUNT 2.88 M/mm3 (4.52-5.90); UROBILINOGEN,URINE 0.2 (0.2-1.0)
[2024-04-27 10:39] LABS: BACTERIA,URINE FEW /hpf (FEW); EPITHELIAL CELLS,URINE 0-5 /hpf (0-5); MUCUS,URINE FEW /hpf (FEW); RBC,URINE >100 /hpf (0-5)
[2024-04-27 10:58] LABS: A/G RATIO 0.8 (1-2); ALBUMIN 2.9 g/dl (3.4-5.0); ANION GAP 18.1 (5-15); BILIRUBIN TOTAL 0.5 mg/dL (0.2-1.0); BUN/CREATININE RATIO 17.7 (14-18); CALCIUM 8.8 mg/dL (8.5-10.1); CREATININE 1.3 mg/dL (0.7-1.3); EST CRCL DRUG DOSING (CG) 46.35 mL/min; POTASSIUM,K 4.1 mEq/L (3.5-5.1); PROTEIN TOTAL,TP 6.5 g/dl (6.4-8.2)
[2024-04-27 13:01] VITALS: BP 136/77; PULSE 70
== END 2024-04-27 12:35 | disposition critical access hospital (66) ==
LOC: JD.ED 09:30
DX: T83.098A Other mechanical complication of other urinary catheter, initial encounter (principal); D64.89 Other specified anemias; I10 Essential (primary) hypertension; I25.10 Atherosclerotic heart disease of native coronary artery without angina pectoris; E78.00 Pure hypercholesterolemia, unspecified; E11.9 Type 2 diabetes mellitus without complications; E66.9 Obesity, unspecified; Z68.41 Body mass index [BMI] 40.0-44.9, adult; Z86.16 Personal history of COVID-19; Z79.899 Other long term (current) drug therapy; Z79.84 Long term (current) use of oral hypoglycemic drugs; Z91.013 Allergy to seafood; Z88.8 Allergy status to other drugs, medicaments and biological substances
CPT/HCPCS: 36415; 80053; 81001; 85025; 87086; 99284; 99285

== ENCOUNTER 2024-05-07 08:52 | Emergency (ER) | payer MEDICARE, OTHER ==
[2024-05-07 10:23] LABS: BASOPHILS PERCENT AUTO 0.5 % (0.0-1.0); EOSINOPHILS PERCENT AUTO 0.9 % (0.0-6.0); HEMATOCRIT 22.7 % (42.0-52.0); IMMATURE GRAN ABSOLUTE AUTO 0.04 K/mm3 (0.00-0.05); IMMATURE GRAN PERCENT AUTO 0.9 % (0.0-0.4); LYMPHOCYTES ABSOLUTE AUTO 0.4 K/mm3 (1.0-4.8); LYMPHOCYTES PERCENT AUTO 8.6 % (24.0-44.0); MEAN CORPUSCULAR HEMOGLOBIN 27.6 pg (28.0-32.0); MEAN CORPUSCULAR HGB CONC 31.7 g/dl (32.0-36.0); MONOCYTES ABSOLUTE AUTO 0.4 K/mm3 (0.0-0.8); MONOCYTES PERCENT AUTO 8.8 % (0.0-8.0); NEUTROPHILS ABSOLUTE AUTO 3.5 K/mm3 (1.8-7.7); NEUTROPHILS PERCENT AUTO 80.3 % (41.0-71.0); PLATELET COUNT,PLT 283 K/mm3 (150-400); RED BLOOD CELL COUNT 2.61 M/mm3 (4.52-5.90); WHITE BLOOD CELL COUNT,WBC 4.41 K/mm3 (3.9-11.3)
[2024-05-07 10:32] LABS: HEMOGLOBIN 7.2 gm/dl (14.0-18.0)
[2024-05-07 10:47] LABS: A/G RATIO 0.8 (1-2); ANION GAP 18.6 (5-15); BILIRUBIN TOTAL 0.7 mg/dL (0.2-1.0); CALCIUM 8.4 mg/dL (8.5-10.1); CREATININE 1.2 mg/dL (0.7-1.3); EST CRCL DRUG DOSING (CG) 53.83 mL/min; MAGNESIUM 1.1 mg/dL (1.8-2.4); POTASSIUM,K 3.6 mEq/L (3.5-5.1); PROTEIN TOTAL,TP 6.6 g/dl (6.4-8.2)
[2024-05-07] MEDS: Magnesium Sulfate/Water Premix 2 GM/50 ML BAG IV ONE (11:36)
[2024-05-07] MEDS: Sodium Chloride 0.9% 10 ML Syringe FLUSH PRN (11:37)
[2024-05-07] MEDS: Aspirin 81 MG Tab.Chew PO ONE (13:38)
[2024-05-07] MEDS: Sodium Chloride 0.9% 1,000 ML IV SCH (13:39)
[2024-05-07 15:46] VITALS: PULSE 80
[2024-05-07 17:26] VITALS: BP 117/67
== END 2024-05-07 17:38 ==
LOC: JD.ED 08:52
DX: I21.4 Non-ST elevation (NSTEMI) myocardial infarction (principal); I35.0 Nonrheumatic aortic (valve) stenosis; I11.0 Hypertensive heart disease with heart failure; I50.9 Heart failure, unspecified; D64.89 Other specified anemias; I25.10 Atherosclerotic heart disease of native coronary artery without angina pectoris; I10 Essential (primary) hypertension; E11.9 Type 2 diabetes mellitus without complications; E66.9 Obesity, unspecified; Z68.41 Body mass index [BMI] 40.0-44.9, adult; Z91.030 Bee allergy status; Z91.013 Allergy to seafood; Z88.8 Allergy status to other drugs, medicaments and biological substances; Z79.899 Other long term (current) drug therapy; Z79.84 Long term (current) use of oral hypoglycemic drugs; Z79.82 Long term (current) use of aspirin
CPT/HCPCS: 36415; 36430; 71045; 80053; 83735; 83880; 84484; 85025; 86850; 86900; 86901; 86922; 93005; 96361; 96365; 96366; 99285; J3475; J3490; J7030; P9016; A9270-GY

== ENCOUNTER 2024-06-14 17:29 | Inpatient (IN) | payer MEDICARE, OTHER ==
[2024-06-14 19:35] LABS: BASOPHILS PERCENT AUTO 0.9 % (0.0-1.0); EOSINOPHILS ABSOLUTE AUTO 0.2 K/mm3 (0.0-0.4); EOSINOPHILS PERCENT AUTO 3.5 % (0.0-6.0); HEMATOCRIT 27.4 % (42.0-52.0); HEMOGLOBIN 8.7 gm/dl (14.0-18.0); IMMATURE GRAN ABSOLUTE AUTO 0.02 K/mm3 (0.00-0.05); IMMATURE GRAN PERCENT AUTO 0.5 % (0.0-0.4); LYMPHOCYTES ABSOLUTE AUTO 0.6 K/mm3 (1.0-4.8); LYMPHOCYTES PERCENT AUTO 14.8 % (24.0-44.0); MEAN CORPUSCULAR HEMOGLOBIN 27.3 pg (28.0-32.0); MEAN CORPUSCULAR HGB CONC 31.8 g/dl (32.0-36.0); MEAN CORPUSCULAR VOLUME 85.9 fl (83.0-99.0); MEAN PLATELET VOLUME 9.2 fl (9.4-12.4); MONOCYTES ABSOLUTE AUTO 0.5 K/mm3 (0.0-0.8); MONOCYTES PERCENT AUTO 11.8 % (0.0-8.0); NEUTROPHILS PERCENT AUTO 68.5 % (41.0-71.0); PLATELET COUNT,PLT 215 K/mm3 (150-400); RED BLOOD CELL COUNT 3.19 M/mm3 (4.52-5.90); WHITE BLOOD CELL COUNT,WBC 4.33 K/mm3 (3.9-11.3)
[2024-06-14 20:12] LABS: A/G RATIO 0.6 (1-2); ALBUMIN 2.5 g/dl (3.4-5.0); ANION GAP 17.7 (5-15); BILIRUBIN TOTAL 0.6 mg/dL (0.2-1.0); BUN/CREATININE RATIO 15.4 (14-18); CALCIUM 8.6 mg/dL (8.5-10.1); CREATININE 1.3 mg/dL (0.7-1.3); EST CRCL DRUG DOSING (CG) 49.69 mL/min; MAGNESIUM 1.4 mg/dL (1.8-2.4); POTASSIUM,K 3.7 mEq/L (3.5-5.1); PROTEIN TOTAL,TP 6.7 g/dl (6.4-8.2)
[2024-06-14] MEDS ORDERED: Sodium Chloride 0.9% 100 ML IV SCH (20:45)
[2024-06-14] MEDS: Sodium Chloride 0.9% 10 ML Syringe FLUSH PRN (20:48)
[2024-06-14] MEDS: Sodium Chloride 0.9% 500 ML IV ONE (20:48)
[2024-06-14 20:55] LABS: APPEARANCE,URINE CLEAR (Clear); BILIRUBIN,URINE NEGATIVE (Negative); COLOR,URINE YELLOW (Yellow); GLUCOSE,URINE NEGATIVE (Negative); KETONES,URINE NEGATIVE (Negative); LEUKOCYTE ESTERASE,URINE NEGATIVE (Negative); NITRITE,URINE NEGATIVE (Negative); OCCULT BLOOD,URINE NEGATIVE (Negative); PROTEIN,URINE NEGATIVE (Negative); UROBILINOGEN,URINE 0.2 (0.2-1.0)
[2024-06-14] MEDS: Iopamidol 755 Mg/ML 100 ML Bottle IVPUSH ONE (21:03)
[2024-06-14] MEDS ORDERED: Magnesium Sulfate (4.06 MEQ/ML) 5 GM/10 ML SDV IV ONE (22:47)
[2024-06-14 23:07] LABS: INR 1.11; PROTHROMBIN TIME 11.7 SECONDS (9.7-12.0)
[2024-06-14] MEDS: fentaNYL 100 MCG/2 ML SDV IVPUSH ONE (23:38)
[2024-06-14] MEDS: Magnesium Sulfate/Water Premix 2 GM in Premix Bag 1 BAG IV SCH (23:39)
[2024-06-15 04:41] LABS: BASOPHILS PERCENT AUTO 0.7 % (0.0-1.0); EOSINOPHILS ABSOLUTE AUTO 0.1 K/mm3 (0.0-0.4); EOSINOPHILS PERCENT AUTO 3.4 % (0.0-6.0); HEMATOCRIT 25.6 % (42.0-52.0); HEMOGLOBIN 8.2 gm/dl (14.0-18.0); IMMATURE GRAN ABSOLUTE AUTO 0.01 K/mm3 (0.00-0.05); IMMATURE GRAN PERCENT AUTO 0.2 % (0.0-0.4); LYMPHOCYTES ABSOLUTE AUTO 0.7 K/mm3 (1.0-4.8); LYMPHOCYTES PERCENT AUTO 17.4 % (24.0-44.0); MEAN CORPUSCULAR HEMOGLOBIN 27.4 pg (28.0-32.0); MEAN CORPUSCULAR VOLUME 85.6 fl (83.0-99.0); MEAN PLATELET VOLUME 9.3 fl (9.4-12.4); MONOCYTES ABSOLUTE AUTO 0.6 K/mm3 (0.0-0.8); MONOCYTES PERCENT AUTO 13.3 % (0.0-8.0); NEUTROPHILS ABSOLUTE AUTO 2.7 K/mm3 (1.8-7.7); PLATELET COUNT,PLT 218 K/mm3 (150-400); RED BLOOD CELL COUNT 2.99 M/mm3 (4.52-5.90); WHITE BLOOD CELL COUNT,WBC 4.13 K/mm3 (3.9-11.3)
[2024-06-15] MEDS ORDERED: 50% Dextrose in Water 50 ML Syringe IVPUSH PRN (06:03)
[2024-06-15] MEDS ORDERED: Ondansetron 4 MG Tab.DIS PO PRN (08:29)
[2024-06-15] MEDS ORDERED: Morphine 2 MG/ML SYRINGE IVPUSH PRN (08:29)
[2024-06-15] MEDS ORDERED: Acetaminophen 325 MG Tab PO PRN (08:29)
[2024-06-15] MEDS ORDERED: Ondansetron 4 MG/2 ML SDV IV PRN (08:29)
[2024-06-15] MEDS: Tamsulosin 0.4 MG Cap.ER PO SCH (08:53)
[2024-06-15] MEDS: Acetaminophen/HYDROcodone 325-5 MG Tab PO PRN (08:53)
[2024-06-15] MEDS: Metoprolol Succinate 25 MG Tab.ER PO SCH (08:54)
[2024-06-15 10:13] LABS: HEMATOCRIT 24.6 % (42.0-52.0)
[2024-06-15] MEDS: Pantoprazole 40 MG Tab.CR PO SCH (13:18)
[2024-06-15 13:23] LABS: IRON,FE 27 ug/dL (65-175); PERCENT FE SATURATION 10 % (20-55); TRANSFERRIN 209 mg/dL (202-364)
[2024-06-15 13:29] LABS: TOTAL IRON BINDING CAPACITY 261 ug/dL (100-400)
[2024-06-15] MEDS: Sodium Ferric Gluconate Cmplex 125 MG in Sodium Chloride 0.9% 100 ML IV ONE (15:29)
[2024-06-15] MEDS: Insulin Lispro 100 Unit/ML 3 ML KwikPen SUBCUT SCH (17:04)
[2024-06-15 17:12] LABS: HEMOGLOBIN 7.6 gm/dl (14.0-18.0)
[2024-06-15] MEDS: Sodium Chloride 0.9% 250 ML IV SCH (19:41)
[2024-06-15 22:14] LABS: HEMATOCRIT 25.6 % (42.0-52.0); HEMOGLOBIN 8.3 gm/dl (14.0-18.0)
[2024-06-16 04:23] LABS: EOSINOPHILS ABSOLUTE AUTO 0.2 K/mm3 (0.0-0.4); EOSINOPHILS PERCENT AUTO 4.8 % (0.0-6.0); HEMATOCRIT 24.9 % (42.0-52.0); HEMOGLOBIN 8.1 gm/dl (14.0-18.0); IMMATURE GRAN ABSOLUTE AUTO 0.02 K/mm3 (0.00-0.05); IMMATURE GRAN PERCENT AUTO 0.6 % (0.0-0.4); LYMPHOCYTES ABSOLUTE AUTO 0.6 K/mm3 (1.0-4.8); MEAN CORPUSCULAR HEMOGLOBIN 27.4 pg (28.0-32.0); MEAN CORPUSCULAR HGB CONC 32.5 g/dl (32.0-36.0); MEAN CORPUSCULAR VOLUME 84.1 fl (83.0-99.0); MEAN PLATELET VOLUME 9.4 fl (9.4-12.4); MONOCYTES ABSOLUTE AUTO 0.5 K/mm3 (0.0-0.8); MONOCYTES PERCENT AUTO 14.5 % (0.0-8.0); NEUTROPHILS ABSOLUTE AUTO 1.9 K/mm3 (1.8-7.7); NEUTROPHILS PERCENT AUTO 60.1 % (41.0-71.0); PLATELET COUNT,PLT 174 K/mm3 (150-400); RED BLOOD CELL COUNT 2.96 M/mm3 (4.52-5.90); WHITE BLOOD CELL COUNT,WBC 3.11 K/mm3 (3.9-11.3)
[2024-06-16 05:00] LABS: A/G RATIO 0.6 (1-2); ALBUMIN 2.2 g/dl (3.4-5.0); ANION GAP 12.4 (5-15); BUN/CREATININE RATIO 14.4 (14-18); CALCIUM 8.3 mg/dL (8.5-10.1); CREATININE 0.9 mg/dL (0.7-1.3); EST CRCL DRUG DOSING (CG) 71.78 mL/min; MAGNESIUM 1.9 mg/dL (1.8-2.4); POTASSIUM,K 3.4 mEq/L (3.5-5.1); PROTEIN TOTAL,TP 5.7 g/dl (6.4-8.2)
[2024-06-16 10:30] LABS: HEMATOCRIT 28.3 % (42.0-52.0); HEMOGLOBIN 9.3 gm/dl (14.0-18.0)
[2024-06-16] MEDS: Polyethylene Glycol 3350 Powder 17 GM Packet PO ONE (10:31)
[2024-06-16 12:40] VITALS: BP 106/83; PULSE 89
== END 2024-06-16 12:41 | disposition home or self-care (01) | DRG 378 ==
LOC: JD.ED 17:29 → JD.MS 06-15 00:15
PROVIDERS: ADMIT Family Medicine; ATTEND Family Medicine
PROC: 30233N1 Transfusion of Nonautologous Red Blood Cells into Peripheral Vein, Percutaneous Approach (ICD-10-PCS; principal; 2024-06-15)
DX: K62.5 Hemorrhage of anus and rectum (principal); D84.9 Immunodeficiency, unspecified; I10 Essential (primary) hypertension; K76.6 Portal hypertension; E11.9 Type 2 diabetes mellitus without complications; Z66 Do not resuscitate; I50.9 Heart failure, unspecified; I25.10 Atherosclerotic heart disease of native coronary artery without angina pectoris; E78.00 Pure hypercholesterolemia, unspecified; N40.0 Benign prostatic hyperplasia without lower urinary tract symptoms; M19.90 Unspecified osteoarthritis, unspecified site; E66.9 Obesity, unspecified; Z96.659 Presence of unspecified artificial knee joint; D64.89 Other specified anemias; H91.90 Unspecified hearing loss, unspecified ear; H54.7 Unspecified visual loss; M54.9 Dorsalgia, unspecified; G89.29 Other chronic pain; E11.69 Type 2 diabetes mellitus with other specified complication; K62.7 Radiation proctitis; E83.42 Hypomagnesemia; I11.0 Hypertensive heart disease with heart failure; K74.69 Other cirrhosis of liver; C61 Malignant neoplasm of prostate; Z95.2 Presence of prosthetic heart valve; Z95.0 Presence of cardiac pacemaker; Z88.8 Allergy status to other drugs, medicaments and biological substances; Z91.013 Allergy to seafood; Z91.030 Bee allergy status; Z79.84 Long term (current) use of oral hypoglycemic drugs; Z79.82 Long term (current) use of aspirin; Z79.899 Other long term (current) drug therapy; I25.2 Old myocardial infarction; Z86.16 Personal history of COVID-19; Z95.1 Presence of aortocoronary bypass graft; Z68.38 Body mass index [BMI] 38.0-38.9, adult; Z87.891 Personal history of nicotine dependence
CPT/HCPCS: 36415; 72191; 74175; 80053; 81003; 82272; 83690; 83735; 83880; 84484; 85025; 85610; 85730; 86850; 86900; 86901; 86922; 93005; 96361; 96365; 96375; 99285; J3010; J3475; J3490; J7030; Q9967; 36430; 82947; 83540; 84466; 85014; 85018; 93010; 97110-GP; 97116-GP; 97161-GP; 97530-GP; A9270-GY; J1815; J2916; J7050; P9016

== ENCOUNTER 2024-07-03 00:44 | Emergency (ER) | payer MEDICARE, OTHER ==
[2024-07-03 01:13] LABS: BASOPHILS PERCENT AUTO 0.9 % (0.0-1.0); EOSINOPHILS ABSOLUTE AUTO 0.2 K/mm3 (0.0-0.4); EOSINOPHILS PERCENT AUTO 4.8 % (0.0-6.0); HEMATOCRIT 24.1 % (42.0-52.0); HEMOGLOBIN 7.6 gm/dl (14.0-18.0); IMMATURE GRAN ABSOLUTE AUTO 0.03 K/mm3 (0.00-0.05); IMMATURE GRAN PERCENT AUTO 0.7 % (0.0-0.4); LYMPHOCYTES ABSOLUTE AUTO 0.9 K/mm3 (1.0-4.8); LYMPHOCYTES PERCENT AUTO 18.8 % (24.0-44.0); MEAN CORPUSCULAR HEMOGLOBIN 27.4 pg (28.0-32.0); MEAN CORPUSCULAR HGB CONC 31.5 g/dl (32.0-36.0); MEAN PLATELET VOLUME 9.9 fl (9.4-12.4); MONOCYTES ABSOLUTE AUTO 0.6 K/mm3 (0.0-0.8); MONOCYTES PERCENT AUTO 13.5 % (0.0-8.0); NEUTROPHILS ABSOLUTE AUTO 2.8 K/mm3 (1.8-7.7); NEUTROPHILS PERCENT AUTO 61.3 % (41.0-71.0); PLATELET COUNT,PLT 160 K/mm3 (150-400); RED BLOOD CELL COUNT 2.77 M/mm3 (4.52-5.90); WHITE BLOOD CELL COUNT,WBC 4.58 K/mm3 (3.9-11.3)
[2024-07-03 01:32] LABS: A/G RATIO 0.7 (1-2); ALBUMIN 2.7 g/dl (3.4-5.0); ANION GAP 18.8 (5-15); BILIRUBIN TOTAL 0.5 mg/dL (0.2-1.0); BUN/CREATININE RATIO 11.3 (14-18); CALCIUM 8.9 mg/dL (8.5-10.1); CREATININE 1.6 mg/dL (0.7-1.3); EST CRCL DRUG DOSING (CG) 43.09 mL/min; POTASSIUM,K 3.8 mEq/L (3.5-5.1); PROTEIN TOTAL,TP 6.8 g/dl (6.4-8.2)
[2024-07-03 01:44] LABS: C-REACTIVE PROTEIN 0.88 mg/dL (<0.30); MAGNESIUM 1.4 mg/dL (1.8-2.4)
[2024-07-03 02:32] LABS: HEMOGLOBIN A1C 6.7 %
[2024-07-03] MEDS: Metoclopramide 10 MG/2 ML SDV IVPUSH ONE (02:34)
[2024-07-03] MEDS: HYDROmorphone 0.5 MG/0.5 ML Syringe IVPUSH ONE ×2 (02:34→02:54)
[2024-07-03] MEDS: LORazepam 2 MG/ML SDV IVPUSH ONE (02:54)
[2024-07-03] MEDS: Magnesium Sulfate/Water Premix 4 GM in Premix Bag 1 BAG IV ONE (02:54)
[2024-07-03] MEDS: Sodium Chloride 0.9% 1,000 ML IV ONE (02:55)
[2024-07-03 08:04] VITALS: BP 111/55; PULSE 77
== END 2024-07-03 07:45 | disposition home or self-care (01) ==
LOC: JD.ED 00:44
DX: R07.89 Other chest pain (principal); D64.89 Other specified anemias; K62.5 Hemorrhage of anus and rectum; C61 Malignant neoplasm of prostate; I25.10 Atherosclerotic heart disease of native coronary artery without angina pectoris; I25.2 Old myocardial infarction; I10 Essential (primary) hypertension; M19.90 Unspecified osteoarthritis, unspecified site; E11.9 Type 2 diabetes mellitus without complications; E66.9 Obesity, unspecified; Z92.3 Personal history of irradiation; Z95.2 Presence of prosthetic heart valve; Z95.0 Presence of cardiac pacemaker; Z86.16 Personal history of COVID-19; Z95.5 Presence of coronary angioplasty implant and graft; Z96.659 Presence of unspecified artificial knee joint; Z87.891 Personal history of nicotine dependence; Z91.013 Allergy to seafood; Z91.030 Bee allergy status; Z79.82 Long term (current) use of aspirin; Z79.84 Long term (current) use of oral hypoglycemic drugs; Z79.899 Other long term (current) drug therapy; Z68.41 Body mass index [BMI] 40.0-44.9, adult
CPT/HCPCS: 36415; 36430; 71045; 74018; 80053; 82150; 83036; 83735; 83880; 84153; 84484; 85025; 86140; 86850; 86900; 86901; 86922; 93005; 96365; 96366; 96375; 99285; J1171; J2060; J3475; J7030; P9016

== ENCOUNTER 2024-07-30 12:12 | Inpatient (IN) | payer MEDICARE, OTHER ==
[2024-07-30 13:12] LABS: BASOPHILS PERCENT AUTO 0.6 % (0.0-1.0); EOSINOPHILS ABSOLUTE AUTO 0.2 K/mm3 (0.0-0.4); EOSINOPHILS PERCENT AUTO 4.5 % (0.0-6.0); HEMATOCRIT 19.5 % (42.0-52.0); IMMATURE GRAN ABSOLUTE AUTO 0.01 K/mm3 (0.00-0.05); IMMATURE GRAN PERCENT AUTO 0.3 % (0.0-0.4); LYMPHOCYTES ABSOLUTE AUTO 0.5 K/mm3 (1.0-4.8); MEAN CORPUSCULAR HEMOGLOBIN 26.6 pg (28.0-32.0); MEAN CORPUSCULAR HGB CONC 30.3 g/dl (32.0-36.0); MEAN CORPUSCULAR VOLUME 87.8 fl (83.0-99.0); MEAN PLATELET VOLUME 9.7 fl (9.4-12.4); MONOCYTES ABSOLUTE AUTO 0.3 K/mm3 (0.0-0.8); MONOCYTES PERCENT AUTO 9.9 % (0.0-8.0); NEUTROPHILS ABSOLUTE AUTO 2.3 K/mm3 (1.8-7.7); NEUTROPHILS PERCENT AUTO 68.7 % (41.0-71.0); PLATELET COUNT,PLT 140 K/mm3 (150-400); RED BLOOD CELL COUNT 2.22 M/mm3 (4.52-5.90); WHITE BLOOD CELL COUNT,WBC 3.32 K/mm3 (3.9-11.3)
[2024-07-30 13:19] LABS: HEMOGLOBIN 5.9 gm/dl (14.0-18.0)
[2024-07-30 13:39] LABS: A/G RATIO 0.7 (1-2); ALBUMIN 2.5 g/dl (3.4-5.0); ANION GAP 20.7 (5-15); BILIRUBIN TOTAL 0.5 mg/dL (0.2-1.0); BUN/CREATININE RATIO 8.8 (14-18); C-REACTIVE PROTEIN 0.83 mg/dL (<0.30); CALCIUM 8.4 mg/dL (8.5-10.1); CREATININE 1.7 mg/dL (0.7-1.3); POTASSIUM,K 4.7 mEq/L (3.5-5.1)
[2024-07-30 13:49] LABS: INR 1.11; PROTHROMBIN TIME 11.7 SECONDS (9.7-12.0)
[2024-07-30] MEDS: Sodium Chloride 0.9% 10 ML Syringe FLUSH PRN (14:04)
[2024-07-30] MEDS: Iopamidol 755 Mg/ML 100 ML Bottle IVPUSH ONE ×2 (14:04→18:11)
[2024-07-30] MEDS: Sodium Chloride 0.9% 100 ML IV SCH (14:04)
[2024-07-30] MEDS ORDERED: Sodium Chloride 0.9% 100 ML IV SCH (14:15)
[2024-07-30] MEDS: Sodium Chloride 0.9% 1,000 ML IV STA (14:27)
[2024-07-30] MEDS: Oxymetazoline 0.05% Nasal Spray 30 ML Bottle NAS ONE (14:28)
[2024-07-30] MEDS: Sodium Chloride 0.9% 500 ML ONE (16:00)
[2024-07-30 16:49] LABS: APPEARANCE,URINE CLEAR (Clear); BILIRUBIN,URINE NEGATIVE (Negative); COLOR,URINE YELLOW (Yellow); GLUCOSE,URINE NEGATIVE (Negative); KETONES,URINE NEGATIVE (Negative); LEUKOCYTE ESTERASE,URINE NEGATIVE (Negative); NITRITE,URINE NEGATIVE (Negative); OCCULT BLOOD,URINE NEGATIVE (Negative); PH,URINE 5.5 (5.0-8.0); PROTEIN,URINE NEGATIVE (Negative); UROBILINOGEN,URINE 0.2 (0.2-1.0)
[2024-07-30] MEDS: Sodium Chloride 0.9% 10 ML Syringe FLUSH ONE (18:11)
[2024-07-30] MEDS ORDERED: Acetaminophen 325 MG Tab PO PRN (18:19)
[2024-07-30] MEDS ORDERED: 50% Dextrose in Water 50 ML Syringe IVPUSH PRN (18:23)
[2024-07-30] MEDS: Sodium Chloride 0.9% 250 ML IV SCH (18:38)
[2024-07-30] MEDS: Acetaminophen/HYDROcodone 325-5 MG Tab PO ONE ×2 (20:43→20:51)
[2024-07-30] MEDS: Insulin Lispro 100 Unit/ML 3 ML KwikPen SUBCUT SCH (22:38)
[2024-07-31 03:25] LABS: BASOPHILS PERCENT AUTO 1.2 % (0.0-1.0); EOSINOPHILS ABSOLUTE AUTO 0.3 K/mm3 (0.0-0.4); EOSINOPHILS PERCENT AUTO 7.5 % (0.0-6.0); HEMATOCRIT 26.9 % (42.0-52.0); IMMATURE GRAN ABSOLUTE AUTO 0.01 K/mm3 (0.00-0.05); IMMATURE GRAN PERCENT AUTO 0.3 % (0.0-0.4); LYMPHOCYTES ABSOLUTE AUTO 0.7 K/mm3 (1.0-4.8); LYMPHOCYTES PERCENT AUTO 19.6 % (24.0-44.0); MEAN CORPUSCULAR HEMOGLOBIN 28.6 pg (28.0-32.0); MEAN CORPUSCULAR HGB CONC 32.7 g/dl (32.0-36.0); MEAN CORPUSCULAR VOLUME 87.3 fl (83.0-99.0); MEAN PLATELET VOLUME 9.2 fl (9.4-12.4); MONOCYTES ABSOLUTE AUTO 0.5 K/mm3 (0.0-0.8); NEUTROPHILS ABSOLUTE AUTO 1.8 K/mm3 (1.8-7.7); NEUTROPHILS PERCENT AUTO 55.4 % (41.0-71.0); PLATELET COUNT,PLT 116 K/mm3 (150-400); RED BLOOD CELL COUNT 3.08 M/mm3 (4.52-5.90); WHITE BLOOD CELL COUNT,WBC 3.32 K/mm3 (3.9-11.3)
[2024-07-31 03:28] LABS: HEMOGLOBIN 8.8 gm/dl (14.0-18.0)
[2024-07-31 04:02] LABS: A/G RATIO 0.7 (1-2); ALBUMIN 2.3 g/dl (3.4-5.0); BILIRUBIN TOTAL 0.7 mg/dL (0.2-1.0); BUN/CREATININE RATIO 9.4 (14-18); CALCIUM 7.9 mg/dL (8.5-10.1); CREATININE 1.6 mg/dL (0.7-1.3); EST CRCL DRUG DOSING (CG) 40.38 mL/min; PROTEIN TOTAL,TP 5.7 g/dl (6.4-8.2)
[2024-07-31] MEDS: Acetaminophen/HYDROcodone 325-5 MG Tab PO PRN ×2 (08:24→16:47)
[2024-07-31] MEDS ORDERED: Acetaminophen/HYDROcodone 325-5 MG Tab PO PRN (09:04)
[2024-07-31 12:16] LABS: HEMATOCRIT 28.4 % (42.0-52.0); HEMOGLOBIN 9.2 gm/dl (14.0-18.0)
[2024-07-31] MEDS ORDERED: Acetaminophen 325 MG Tab PO PRN (15:53)
[2024-07-31] MEDS: Pantoprazole 40 MG Tab.CR PO SCH (16:44)
[2024-07-31 18:04] LABS: HEMATOCRIT 29.5 % (42.0-52.0); HEMOGLOBIN 9.2 gm/dl (14.0-18.0)
[2024-07-31] MEDS: Tamsulosin 0.4 MG Cap.ER PO SCH (20:00)
[2024-07-31] MEDS: Potassium Chloride 20 MEQ Tab.ER PO SCH (20:00)
[2024-07-31] MEDS: Spironolactone 25 MG Tab PO SCH (20:18)
[2024-08-01 05:51] LABS: BASOPHILS PERCENT AUTO 1.2 % (0.0-1.0); EOSINOPHILS ABSOLUTE AUTO 0.3 K/mm3 (0.0-0.4); EOSINOPHILS PERCENT AUTO 8.1 % (0.0-6.0); HEMOGLOBIN 8.7 gm/dl (14.0-18.0); IMMATURE GRAN ABSOLUTE AUTO 0.01 K/mm3 (0.00-0.05); IMMATURE GRAN PERCENT AUTO 0.3 % (0.0-0.4); LYMPHOCYTES ABSOLUTE AUTO 0.6 K/mm3 (1.0-4.8); LYMPHOCYTES PERCENT AUTO 18.7 % (24.0-44.0); MEAN CORPUSCULAR HEMOGLOBIN 28.2 pg (28.0-32.0); MEAN CORPUSCULAR HGB CONC 32.2 g/dl (32.0-36.0); MEAN CORPUSCULAR VOLUME 87.7 fl (83.0-99.0); MEAN PLATELET VOLUME 9.6 fl (9.4-12.4); MONOCYTES ABSOLUTE AUTO 0.5 K/mm3 (0.0-0.8); NEUTROPHILS ABSOLUTE AUTO 1.8 K/mm3 (1.8-7.7); NEUTROPHILS PERCENT AUTO 56.7 % (41.0-71.0); PLATELET COUNT,PLT 117 K/mm3 (150-400); RED BLOOD CELL COUNT 3.08 M/mm3 (4.52-5.90); WHITE BLOOD CELL COUNT,WBC 3.21 K/mm3 (3.9-11.3)
[2024-08-01 06:01] LABS: A/G RATIO 0.7 (1-2); ALBUMIN 2.2 g/dl (3.4-5.0); BILIRUBIN TOTAL 0.7 mg/dL (0.2-1.0); BUN/CREATININE RATIO 7.7 (14-18); CALCIUM 7.8 mg/dL (8.5-10.1); CREATININE 1.3 mg/dL (0.7-1.3); EST CRCL DRUG DOSING (CG) 49.69 mL/min; PROTEIN TOTAL,TP 5.5 g/dl (6.4-8.2)
[2024-08-01] MEDS ORDERED: Spironolactone 25 MG Tab PO SCH (09:00)
[2024-08-01] MEDS: Metoprolol Succinate 25 MG Tab.ER PO SCH (09:12)
[2024-08-01 09:14] VITALS: BP 122/65; PULSE 103
[2024-08-01] MEDS: Polyethylene Glycol 3350 Powder 17 GM Packet PO SCH (10:55)
[2024-08-01] MEDS ORDERED: Aspirin 81 MG Tab.EC PO SCH (21:00)
== END 2024-08-01 11:54 | disposition home or self-care (01) | DRG 394 ==
LOC: JD.ED 12:12 → JD.MS 18:05
PROVIDERS: ADMIT Family Medicine; ATTEND Family Medicine
PROC: 30233N1 Transfusion of Nonautologous Red Blood Cells into Peripheral Vein, Percutaneous Approach (ICD-10-PCS; principal; 2024-07-30)
DX: K62.7 Radiation proctitis (principal); D62 Acute posthemorrhagic anemia; I85.00 Esophageal varices without bleeding; D64.9 Anemia, unspecified; R18.8 Other ascites; I10 Essential (primary) hypertension; K76.6 Portal hypertension; I25.810 Atherosclerosis of coronary artery bypass graft(s) without angina pectoris; Z68.41 Body mass index [BMI] 40.0-44.9, adult; Z66 Do not resuscitate; J30.9 Allergic rhinitis, unspecified; I25.2 Old myocardial infarction; K63.5 Polyp of colon; N40.0 Benign prostatic hyperplasia without lower urinary tract symptoms; M19.90 Unspecified osteoarthritis, unspecified site; G89.29 Other chronic pain; Z79.84 Long term (current) use of oral hypoglycemic drugs; M54.9 Dorsalgia, unspecified; E11.9 Type 2 diabetes mellitus without complications; Z87.891 Personal history of nicotine dependence; E83.42 Hypomagnesemia; E66.9 Obesity, unspecified; B26.9 Mumps without complication; K57.30 Diverticulosis of large intestine without perforation or abscess without bleeding; K74.60 Unspecified cirrhosis of liver; R59.9 Enlarged lymph nodes, unspecified; I50.9 Heart failure, unspecified; I11.0 Hypertensive heart disease with heart failure; H91.90 Unspecified hearing loss, unspecified ear; E78.00 Pure hypercholesterolemia, unspecified; Z95.0 Presence of cardiac pacemaker; Z92.3 Personal history of irradiation; Z72.0 Tobacco use; Z88.8 Allergy status to other drugs, medicaments and biological substances; Z91.81 History of falling; Z79.899 Other long term (current) drug therapy; Z79.1 Long term (current) use of non-steroidal anti-inflammatories (NSAID); Z95.1 Presence of aortocoronary bypass graft; Z79.82 Long term (current) use of aspirin; Z91.013 Allergy to seafood; Z98.890 Other specified postprocedural states; Z86.16 Personal history of COVID-19; Z91.030 Bee allergy status; Z85.46 Personal history of malignant neoplasm of prostate; Z96.659 Presence of unspecified artificial knee joint; Z87.442 Personal history of urinary calculi; Z79.01 Long term (current) use of anticoagulants; Z95.2 Presence of prosthetic heart valve
CPT/HCPCS: 36415; 36430; 71046; 72191; 74175; 80053; 81003; 84484 ×2; 85025; 85610; 86140; 86850; 86900; 86901; 86922; 93005; A9270; J7030; J7040; P9016; Q9967; 82947; 85014; 85018; 93010; 96360; 96361; 99223; 99233; 99238; 99285; 99285-25; J1815

== ENCOUNTER 2024-08-20 09:27 | Emergency (ER) | payer MEDICARE, OTHER ==
[2024-08-20] MEDS: LORazepam 2 MG/ML SDV IVPUSH ONE (10:17)
[2024-08-20] MEDS: Sodium Chloride 0.9% 10 ML Syringe FLUSH PRN (10:20)
[2024-08-20 10:37] LABS: BASOPHILS PERCENT AUTO 0.8 % (0.0-1.0); EOSINOPHILS ABSOLUTE AUTO 0.2 K/mm3 (0.0-0.4); EOSINOPHILS PERCENT AUTO 5.7 % (0.0-6.0); HEMATOCRIT 20.8 % (42.0-52.0); IMMATURE GRAN ABSOLUTE AUTO 0.02 K/mm3 (0.00-0.05); IMMATURE GRAN PERCENT AUTO 0.5 % (0.0-0.4); LYMPHOCYTES ABSOLUTE AUTO 0.5 K/mm3 (1.0-4.8); LYMPHOCYTES PERCENT AUTO 13.4 % (24.0-44.0); MEAN CORPUSCULAR HEMOGLOBIN 26.3 pg (28.0-32.0); MEAN CORPUSCULAR HGB CONC 30.3 g/dl (32.0-36.0); MEAN PLATELET VOLUME 9.8 fl (9.4-12.4); MONOCYTES ABSOLUTE AUTO 0.5 K/mm3 (0.0-0.8); MONOCYTES PERCENT AUTO 11.8 % (0.0-8.0); NEUTROPHILS ABSOLUTE AUTO 2.6 K/mm3 (1.8-7.7); NEUTROPHILS PERCENT AUTO 67.8 % (41.0-71.0); PLATELET COUNT,PLT 197 K/mm3 (150-400); WHITE BLOOD CELL COUNT,WBC 3.89 K/mm3 (3.9-11.3)
[2024-08-20 10:39] LABS: HEMOGLOBIN 6.3 gm/dl (14.0-18.0); MEAN CORPUSCULAR VOLUME 86.7 fl (83.0-99.0)
[2024-08-20 10:50] LABS: A/G RATIO 0.6 (1-2); ALBUMIN 2.5 g/dl (3.4-5.0); ANION GAP 15.5 (5-15); BILIRUBIN TOTAL 0.5 mg/dL (0.2-1.0); BUN/CREATININE RATIO 11.7 (14-18); CALCIUM 8.2 mg/dL (8.5-10.1); CREATININE 1.2 mg/dL (0.7-1.3); EST CRCL DRUG DOSING (CG) 53.83 mL/min; POTASSIUM,K 3.5 mEq/L (3.5-5.1); PROTEIN TOTAL,TP 6.4 g/dl (6.4-8.2)
[2024-08-20 16:48] VITALS: BP 127/69; PULSE 92
== END 2024-08-20 16:15 | disposition home or self-care (01) ==
LOC: SUPCPDRO 09:27 → JD.ED 09:27
DX: D64.9 Anemia, unspecified (principal); K92.2 Gastrointestinal hemorrhage, unspecified; I10 Essential (primary) hypertension; I25.810 Atherosclerosis of coronary artery bypass graft(s) without angina pectoris; I25.2 Old myocardial infarction; M19.90 Unspecified osteoarthritis, unspecified site; E78.00 Pure hypercholesterolemia, unspecified; E66.9 Obesity, unspecified; E11.9 Type 2 diabetes mellitus without complications; Z91.030 Bee allergy status; Z91.013 Allergy to seafood; Z88.8 Allergy status to other drugs, medicaments and biological substances; Z79.82 Long term (current) use of aspirin; Z79.899 Other long term (current) drug therapy; Z86.16 Personal history of COVID-19; Z68.38 Body mass index [BMI] 38.0-38.9, adult
CPT/HCPCS: 36415; 36430; 80053; 85025; 86850; 86900; 86901; 86922; 96374; 99284; J2060; P9016

== ENCOUNTER 2024-08-31 12:38 | Emergency (ER) | payer MEDICARE, OTHER ==
[2024-08-31] MEDS ORDERED: Sodium Chloride 0.9% 10 ML Syringe FLUSH PRN (13:12)
[2024-08-31 14:30] LABS: BASOPHILS PERCENT AUTO 0.5 % (0.0-1.0); EOSINOPHILS ABSOLUTE AUTO 0.2 K/mm3 (0.0-0.4); EOSINOPHILS PERCENT AUTO 2.6 % (0.0-6.0); HEMATOCRIT 23.7 % (42.0-52.0); IMMATURE GRAN ABSOLUTE AUTO 0.01 K/mm3 (0.00-0.05); IMMATURE GRAN PERCENT AUTO 0.2 % (0.0-0.4); LYMPHOCYTES ABSOLUTE AUTO 0.6 K/mm3 (1.0-4.8); LYMPHOCYTES PERCENT AUTO 10.7 % (24.0-44.0); MEAN CORPUSCULAR HEMOGLOBIN 26.7 pg (28.0-32.0); MEAN CORPUSCULAR HGB CONC 30.8 g/dl (32.0-36.0); MEAN CORPUSCULAR VOLUME 86.8 fl (83.0-99.0); MEAN PLATELET VOLUME 9.8 fl (9.4-12.4); MONOCYTES ABSOLUTE AUTO 0.7 K/mm3 (0.0-0.8); MONOCYTES PERCENT AUTO 11.4 % (0.0-8.0); NEUTROPHILS ABSOLUTE AUTO 4.2 K/mm3 (1.8-7.7); NEUTROPHILS PERCENT AUTO 74.6 % (41.0-71.0); PLATELET COUNT,PLT 133 K/mm3 (150-400); RED BLOOD CELL COUNT 2.73 M/mm3 (4.52-5.90); WHITE BLOOD CELL COUNT,WBC 5.68 K/mm3 (3.9-11.3)
[2024-08-31 14:33] LABS: HEMOGLOBIN 7.3 gm/dl (14.0-18.0)
[2024-08-31] MEDS ORDERED: Sodium Chloride 0.9% 1,000 ML IV SCH (14:45)
[2024-08-31 15:19] LABS: A/G RATIO 0.7 (1-2); ALBUMIN 2.6 g/dl (3.4-5.0); ANION GAP 15.6 (5-15); BILIRUBIN TOTAL 0.6 mg/dL (0.2-1.0); BUN/CREATININE RATIO 10.9 (14-18); CALCIUM 8.2 mg/dL (8.5-10.1); CREATININE 1.1 mg/dL (0.7-1.3); EST CRCL DRUG DOSING (CG) 58.73 mL/min; POTASSIUM,K 3.6 mEq/L (3.5-5.1); PROTEIN TOTAL,TP 6.3 g/dl (6.4-8.2)
[2024-08-31] MEDS: diphenhydrAMINE 50 MG/ML SDV IV ONE (16:13)
[2024-08-31] MEDS: Acetaminophen 325 MG Tab PO ONE (16:13)
[2024-08-31] MEDS: Furosemide 40 MG/4 ML VIAL IVPUSH ONE (20:52)
[2024-08-31 21:37] VITALS: BP 133/66; PULSE 86
== END 2024-08-31 21:37 | disposition home or self-care (01) ==
LOC: JD.ED 12:38
DX: D64.9 Anemia, unspecified (principal); K62.5 Hemorrhage of anus and rectum; I25.10 Atherosclerotic heart disease of native coronary artery without angina pectoris; I25.2 Old myocardial infarction; I10 Essential (primary) hypertension; M19.90 Unspecified osteoarthritis, unspecified site; E11.9 Type 2 diabetes mellitus without complications; E66.9 Obesity, unspecified; Z68.38 Body mass index [BMI] 38.0-38.9, adult; Z86.16 Personal history of COVID-19; Z95.2 Presence of prosthetic heart valve; Z88.8 Allergy status to other drugs, medicaments and biological substances; Z91.030 Bee allergy status; Z91.013 Allergy to seafood; Z79.84 Long term (current) use of oral hypoglycemic drugs; Z79.82 Long term (current) use of aspirin; Z79.899 Other long term (current) drug therapy
CPT/HCPCS: 36415; 36430; 71045; 71045-26; 80053; 83880; 84484; 85025; 86850; 86900; 86901; 86922; 87428-QW; 93005; 93010; 96374; 99284; 99285-25; A9270-GY; J1200; P9016

== ENCOUNTER 2024-09-14 16:07 | Inpatient (IN) | payer MEDICARE, OTHER ==
[2024-09-14] MEDS ORDERED: Sodium Chloride 0.9% 10 ML Syringe FLUSH PRN ×2 (16:38→18:11)
[2024-09-14 17:35] LABS: BASOPHILS PERCENT AUTO 0.6 % (0.0-1.0); EOSINOPHILS ABSOLUTE AUTO 0.1 K/mm3 (0.0-0.4); EOSINOPHILS PERCENT AUTO 2.1 % (0.0-6.0); HEMATOCRIT 23.9 % (42.0-52.0); HEMOGLOBIN 7.5 gm/dl (14.0-18.0); IMMATURE GRAN ABSOLUTE AUTO 0.02 K/mm3 (0.00-0.05); IMMATURE GRAN PERCENT AUTO 0.4 % (0.0-0.4); LYMPHOCYTES ABSOLUTE AUTO 0.5 K/mm3 (1.0-4.8); LYMPHOCYTES PERCENT AUTO 10.4 % (24.0-44.0); MEAN CORPUSCULAR HGB CONC 31.4 g/dl (32.0-36.0); MEAN PLATELET VOLUME 9.2 fl (9.4-12.4); MONOCYTES ABSOLUTE AUTO 0.6 K/mm3 (0.0-0.8); MONOCYTES PERCENT AUTO 11.4 % (0.0-8.0); NEUTROPHILS ABSOLUTE AUTO 3.9 K/mm3 (1.8-7.7); NEUTROPHILS PERCENT AUTO 75.1 % (41.0-71.0); PLATELET COUNT,PLT 174 K/mm3 (150-400); RED BLOOD CELL COUNT 2.78 M/mm3 (4.52-5.90); WHITE BLOOD CELL COUNT,WBC 5.19 K/mm3 (3.9-11.3)
[2024-09-14 17:52] LABS: INR 1.12; PROTHROMBIN TIME 11.8 SECONDS (9.7-12.0)
[2024-09-14 17:54] LABS: PTT,PARTIAL THROMBOPLSTIN TIME 24.5 SECONDS (21.7-31.4)
[2024-09-14 18:07] LABS: A/G RATIO 0.7 (1-2); ALBUMIN 2.6 g/dl (3.4-5.0); ANION GAP 16.4 (5-15); BILIRUBIN TOTAL 0.5 mg/dL (0.2-1.0); CALCIUM 8.2 mg/dL (8.5-10.1); EST CRCL DRUG DOSING (CG) 64.6 mL/min; POTASSIUM,K 3.4 mEq/L (3.5-5.1); PROTEIN TOTAL,TP 6.3 g/dl (6.4-8.2)
[2024-09-14] MEDS: Sodium Chloride 0.9% 45 ML IV SCH (18:13)
[2024-09-14] MEDS: Iopamidol 755 Mg/ML 100 ML Bottle IVPUSH ONE (18:13)
[2024-09-14] MEDS: HYDROmorphone 0.5 MG/0.5 ML Syringe IVPUSH ONE (19:11)
[2024-09-14] MEDS ORDERED: HYDROmorphone 0.5 MG/0.5 ML Syringe IVPUSH PRN (19:43)
[2024-09-14] MEDS ORDERED: 50% Dextrose in Water 50 ML Syringe IVPUSH PRN (20:03)
[2024-09-14] MEDS: oxyCODONE 5 MG Tab PO PRN (20:22)
[2024-09-14] MEDS: Insulin Lispro 100 Unit/ML 3 ML KwikPen SUBCUT SCH (21:31)
[2024-09-14] MEDS: Ondansetron 4 MG/2 ML SDV IVPUSH PRN (21:35)
[2024-09-14] MEDS: Morphine 2 MG/ML SYRINGE IVPUSH PRN (21:35)
[2024-09-15 04:30] LABS: BASOPHILS PERCENT AUTO 0.5 % (0.0-1.0); EOSINOPHILS ABSOLUTE AUTO 0.2 K/mm3 (0.0-0.4); EOSINOPHILS PERCENT AUTO 3.6 % (0.0-6.0); HEMATOCRIT 24.7 % (42.0-52.0); HEMOGLOBIN 7.7 gm/dl (14.0-18.0); IMMATURE GRAN ABSOLUTE AUTO 0.02 K/mm3 (0.00-0.05); IMMATURE GRAN PERCENT AUTO 0.5 % (0.0-0.4); LYMPHOCYTES ABSOLUTE AUTO 0.7 K/mm3 (1.0-4.8); MEAN CORPUSCULAR HEMOGLOBIN 26.6 pg (28.0-32.0); MEAN CORPUSCULAR HGB CONC 31.2 g/dl (32.0-36.0); MEAN CORPUSCULAR VOLUME 85.2 fl (83.0-99.0); MEAN PLATELET VOLUME 9.2 fl (9.4-12.4); MONOCYTES ABSOLUTE AUTO 0.5 K/mm3 (0.0-0.8); MONOCYTES PERCENT AUTO 12.9 % (0.0-8.0); NEUTROPHILS ABSOLUTE AUTO 2.7 K/mm3 (1.8-7.7); NEUTROPHILS PERCENT AUTO 66.5 % (41.0-71.0); PLATELET COUNT,PLT 158 K/mm3 (150-400); WHITE BLOOD CELL COUNT,WBC 4.12 K/mm3 (3.9-11.3)
[2024-09-15] MEDS: Sodium Chloride 0.9% 250 ML IV SCH (11:27)
[2024-09-15] MEDS: Acetaminophen 325 MG Tab PO PRN (12:01)
[2024-09-15] MEDS: Metoprolol Succinate 50 MG Tab.ER PO SCH (13:26)
[2024-09-15] MEDS: Torsemide 20 MG Tab PO ONE (16:28)
[2024-09-15 17:18] LABS: HEMATOCRIT 32.5 % (42.0-52.0); HEMOGLOBIN 10.6 gm/dl (14.0-18.0)
[2024-09-15] MEDS: Aspirin 81 MG Tab.EC PO SCH (17:43)
[2024-09-15] MEDS: Tamsulosin 0.4 MG Cap.ER PO SCH (20:44)
[2024-09-16 07:57] LABS: HEMATOCRIT 33.5 % (42.0-52.0); HEMOGLOBIN 10.8 gm/dl (14.0-18.0); MEAN CORPUSCULAR HEMOGLOBIN 27.8 pg (28.0-32.0); MEAN CORPUSCULAR HGB CONC 32.2 g/dl (32.0-36.0); MEAN CORPUSCULAR VOLUME 86.3 fl (83.0-99.0); MEAN PLATELET VOLUME 8.9 fl (9.4-12.4); PLATELET COUNT,PLT 177 K/mm3 (150-400); RED BLOOD CELL COUNT 3.88 M/mm3 (4.52-5.90); WHITE BLOOD CELL COUNT,WBC 5.32 K/mm3 (3.9-11.3)
[2024-09-16] MEDS: Torsemide 20 MG Tab PO SCH (08:03)
[2024-09-16 08:33] LABS: ANION GAP 15.6 (5-15); BUN/CREATININE RATIO 9.1 (14-18); CALCIUM 8.1 mg/dL (8.5-10.1); CREATININE 1.1 mg/dL (0.7-1.3); EST CRCL DRUG DOSING (CG) 58.73 mL/min; POTASSIUM,K 3.6 mEq/L (3.5-5.1)
[2024-09-16 13:03] VITALS: BP 101/65; PULSE 82
== END 2024-09-16 12:58 | disposition home or self-care (01) | DRG 552 ==
LOC: JD.ED 16:07 → JD.MS 19:43
PROVIDERS: ADMIT Family Medicine; ATTEND Family Medicine
PROC: 30233N1 Transfusion of Nonautologous Red Blood Cells into Peripheral Vein, Percutaneous Approach (ICD-10-PCS; principal; 2024-09-14)
DX: M51.16 Intervertebral disc disorders with radiculopathy, lumbar region (principal); D62 Acute posthemorrhagic anemia; I85.00 Esophageal varices without bleeding; D84.9 Immunodeficiency, unspecified; M48.061 Spinal stenosis, lumbar region without neurogenic claudication; Z66 Do not resuscitate; Z68.36 Body mass index [BMI] 36.0-36.9, adult; J30.9 Allergic rhinitis, unspecified; H91.90 Unspecified hearing loss, unspecified ear; E66.9 Obesity, unspecified; I10 Essential (primary) hypertension; E78.00 Pure hypercholesterolemia, unspecified; I25.2 Old myocardial infarction; N40.0 Benign prostatic hyperplasia without lower urinary tract symptoms; M19.90 Unspecified osteoarthritis, unspecified site; M54.9 Dorsalgia, unspecified; G89.29 Other chronic pain; E11.9 Type 2 diabetes mellitus without complications; K62.7 Radiation proctitis; M21.372 Foot drop, left foot; M21.371 Foot drop, right foot; Z79.899 Other long term (current) drug therapy; Z95.0 Presence of cardiac pacemaker; Z86.16 Personal history of COVID-19; Z85.46 Personal history of malignant neoplasm of prostate; Z96.659 Presence of unspecified artificial knee joint; Z88.8 Allergy status to other drugs, medicaments and biological substances; I25.10 Atherosclerotic heart disease of native coronary artery without angina pectoris; Z95.1 Presence of aortocoronary bypass graft; Z92.3 Personal history of irradiation
CPT/HCPCS: 36415; 36430; 70450; 70450-26; 70496; 70496-26; 70498; 70498-26; 72131; 72131-26; 72170; 72170-26; 73552-26-LT; 73552-LT; 80048; 80053; 82947; 84484; 85014; 85018; 85025; 85027; 85610; 85730; 86850; 86900; 86901; 86922; 93005; 93010; 97110-GP; 97116-GP; 97161-GP; 99223; 99233; 99239; 99284; A9270-GY; J1815; J2270; J2405; P9016; Q9967

== ENCOUNTER 2024-10-13 15:57 | Emergency (ER) | payer MEDICARE, OTHER ==
[2024-10-13] MEDS ORDERED: Sodium Chloride 0.9% 10 ML Syringe FLUSH PRN (16:43)
[2024-10-13 17:39] LABS: BASOPHILS PERCENT AUTO 0.5 % (0.0-1.0); EOSINOPHILS ABSOLUTE AUTO 0.2 K/mm3 (0.0-0.4); EOSINOPHILS PERCENT AUTO 4.4 % (0.0-6.0); HEMATOCRIT 21.3 % (42.0-52.0); IMMATURE GRAN ABSOLUTE AUTO 0.01 K/mm3 (0.00-0.05); IMMATURE GRAN PERCENT AUTO 0.3 % (0.0-0.4); LYMPHOCYTES ABSOLUTE AUTO 0.6 K/mm3 (1.0-4.8); LYMPHOCYTES PERCENT AUTO 15.3 % (24.0-44.0); MEAN CORPUSCULAR HEMOGLOBIN 26.7 pg (28.0-32.0); MEAN CORPUSCULAR VOLUME 86.2 fl (83.0-99.0); MEAN PLATELET VOLUME 9.3 fl (9.4-12.4); MONOCYTES ABSOLUTE AUTO 0.5 K/mm3 (0.0-0.8); MONOCYTES PERCENT AUTO 12.3 % (0.0-8.0); NEUTROPHILS ABSOLUTE AUTO 2.5 K/mm3 (1.8-7.7); NEUTROPHILS PERCENT AUTO 67.2 % (41.0-71.0); PLATELET COUNT,PLT 126 K/mm3 (150-400); RED BLOOD CELL COUNT 2.47 M/mm3 (4.52-5.90); WHITE BLOOD CELL COUNT,WBC 3.67 K/mm3 (3.9-11.3)
[2024-10-13 17:49] LABS: A/G RATIO 0.7 (1-2); ALBUMIN 2.5 g/dl (3.4-5.0); ANION GAP 12.8 (5-15); BILIRUBIN TOTAL 0.6 mg/dL (0.2-1.0); BUN/CREATININE RATIO 13.8 (14-18); CALCIUM 8.2 mg/dL (8.5-10.1); CREATININE 1.3 mg/dL (0.7-1.3); EST CRCL DRUG DOSING (CG) 49.69 mL/min; POTASSIUM,K 3.8 mEq/L (3.5-5.1); PROTEIN TOTAL,TP 6.1 g/dl (6.4-8.2)
[2024-10-13 17:54] LABS: HEMOGLOBIN 6.6 gm/dl (14.0-18.0)
[2024-10-13] MEDS: Acetaminophen/HYDROcodone 325-10 MG Tab PO ONE (21:24)
[2024-10-14 03:43] VITALS: BP 122/57; PULSE 80
== END 2024-10-14 07:37 | disposition home or self-care (01) ==
LOC: JD.ED 15:57
DX: D64.9 Anemia, unspecified (principal); K62.5 Hemorrhage of anus and rectum; K62.7 Radiation proctitis; I25.10 Atherosclerotic heart disease of native coronary artery without angina pectoris; E78.00 Pure hypercholesterolemia, unspecified; I10 Essential (primary) hypertension; I25.2 Old myocardial infarction; Z95.0 Presence of cardiac pacemaker; Z91.030 Bee allergy status; Z91.013 Allergy to seafood; Z88.8 Allergy status to other drugs, medicaments and biological substances; Z79.84 Long term (current) use of oral hypoglycemic drugs; Z79.899 Other long term (current) drug therapy; Z79.82 Long term (current) use of aspirin; E11.9 Type 2 diabetes mellitus without complications; Z86.16 Personal history of COVID-19
CPT/HCPCS: 36415; 36430; 80053; 85025; 86850; 86900; 86901; 86922; 99284; A9270; P9016; 99283

== ENCOUNTER 2024-10-28 09:16 | Day surgery (SDC) | payer MEDICARE, OTHER ==
[~2024-10-28 09:16] MED LIST changes: -Lactated Ringers 1,000 ML IV SCH; -Lidocaine 1%/Sod Bicarbonate in NS 8.4% 1 ML Syringe IDERM PRN; +Sodium Chloride 0.9% 10 ML Syringe FLUSH SCH
[2024-10-28] MEDS: Lactated Ringers 1,000 ML IV SCH (09:50)
[2024-10-28] MEDS ORDERED: Propofol 200 MG/20 ML SDV ONE ×2 (10:30→10:44)
[2024-10-28 11:28] VITALS: BP 108/59; PULSE 80
== END 2024-10-28 12:00 | disposition home or self-care (01) ==
LOC: JD.SDS 09:16
PROVIDERS: ATTEND Surgery
DX: K62.7 Radiation proctitis (principal); K62.5 Hemorrhage of anus and rectum; D64.9 Anemia, unspecified; I11.0 Hypertensive heart disease with heart failure; I50.9 Heart failure, unspecified; E11.9 Type 2 diabetes mellitus without complications; E78.00 Pure hypercholesterolemia, unspecified; Z87.891 Personal history of nicotine dependence; Z79.84 Long term (current) use of oral hypoglycemic drugs; Z79.899 Other long term (current) drug therapy; Z91.013 Allergy to seafood
CPT/HCPCS: 45317; J2704; J7120

== ENCOUNTER 2024-12-23 21:19 | Emergency (ER) | payer MEDICARE, OTHER ==
[2024-12-23] MEDS: Sodium Chloride 0.9% 10 ML Syringe FLUSH PRN (22:16)
[2024-12-23 22:32] LABS: BASOPHILS PERCENT AUTO 0.5 % (0.0-1.0); EOSINOPHILS ABSOLUTE AUTO 0.1 K/mm3 (0.0-0.4); EOSINOPHILS PERCENT AUTO 3.3 % (0.0-6.0); HEMATOCRIT 20.5 % (42.0-52.0); IMMATURE GRAN ABSOLUTE AUTO 0.02 K/mm3 (0.00-0.05); IMMATURE GRAN PERCENT AUTO 0.5 % (0.0-0.4); LYMPHOCYTES ABSOLUTE AUTO 0.5 K/mm3 (1.0-4.8); LYMPHOCYTES PERCENT AUTO 13.8 % (24.0-44.0); MEAN CORPUSCULAR HEMOGLOBIN 25.7 pg (28.0-32.0); MEAN CORPUSCULAR HGB CONC 30.2 g/dl (32.0-36.0); MEAN CORPUSCULAR VOLUME 85.1 fl (83.0-99.0); MEAN PLATELET VOLUME 9.3 fl (9.4-12.4); MONOCYTES ABSOLUTE AUTO 0.5 K/mm3 (0.0-0.8); MONOCYTES PERCENT AUTO 13.8 % (0.0-8.0); NEUTROPHILS ABSOLUTE AUTO 2.7 K/mm3 (1.8-7.7); NEUTROPHILS PERCENT AUTO 68.1 % (41.0-71.0); PLATELET COUNT,PLT 149 K/mm3 (150-400); RED BLOOD CELL COUNT 2.41 M/mm3 (4.52-5.90); WHITE BLOOD CELL COUNT,WBC 3.91 K/mm3 (3.9-11.3)
[2024-12-23 22:34] LABS: HEMOGLOBIN 6.2 gm/dl (14.0-18.0)
[2024-12-23 22:56] LABS: APPEARANCE,URINE CLEAR (Clear); BILIRUBIN,URINE NEGATIVE (Negative); COLOR,URINE YELLOW (Yellow); GLUCOSE,URINE NEGATIVE (Negative); KETONES,URINE NEGATIVE (Negative); LEUKOCYTE ESTERASE,URINE NEGATIVE (Negative); NITRITE,URINE NEGATIVE (Negative); OCCULT BLOOD,URINE NEGATIVE (Negative); PH,URINE 5.5 (5.0-8.0); PROTEIN,URINE TRACE (Negative); UROBILINOGEN,URINE 0.2 (0.2-1.0)
[2024-12-23 22:59] LABS: A/G RATIO 0.7 (1-2); ALBUMIN 2.4 g/dl (3.4-5.0); BILIRUBIN TOTAL 0.5 mg/dL (0.2-1.0); BUN/CREATININE RATIO 12.7 (14-18); CREATININE 1.1 mg/dL (0.7-1.3); EST CRCL DRUG DOSING (CG) 59.81 mL/min; PROTEIN TOTAL,TP 6.1 g/dl (6.4-8.2)
[2024-12-23 23:15] LABS: BACTERIA,URINE FEW /hpf (FEW); EPITHELIAL CELLS,URINE 0-5 /hpf (0-5); RBC,URINE 0-5 /hpf (0-5); WBC,URINE 0-5 /hpf (0-5)
[2024-12-23 23:16] LABS: HYALINE CASTS,URINE 0-5 /lpf (0-5); MUCUS,URINE MANY /hpf (FEW)
[2024-12-24] MEDS: Sodium Chloride 0.9% 250 ML IV SCH (00:35)
[2024-12-24 06:35] VITALS: BP 116/74; PULSE 86
== END 2024-12-24 07:20 | disposition home or self-care (01) ==
LOC: JD.ED 21:19
DX: D64.9 Anemia, unspecified (principal); E11.65 Type 2 diabetes mellitus with hyperglycemia; I25.10 Atherosclerotic heart disease of native coronary artery without angina pectoris; I25.2 Old myocardial infarction; I10 Essential (primary) hypertension; M19.90 Unspecified osteoarthritis, unspecified site; Z86.19 Personal history of other infectious and parasitic diseases; Z87.19 Personal history of other diseases of the digestive system; Z86.16 Personal history of COVID-19; Z88.8 Allergy status to other drugs, medicaments and biological substances; Z91.013 Allergy to seafood; Z91.030 Bee allergy status; Z79.82 Long term (current) use of aspirin; Z79.84 Long term (current) use of oral hypoglycemic drugs; Z79.899 Other long term (current) drug therapy
CPT/HCPCS: 36415; 36430; 71045; 80053; 81001; 82947; 83605; 83735; 84484; 85025; 86850; 86900; 86901; 86922; 87040; 87154; 93005; 99285; J7050; P9016

== ENCOUNTER 2025-02-10 09:59 | Day surgery (SDC) | payer MEDICARE, OTHER ==
[2025-02-10] MEDS: Lidocaine 1% PF 2 ML SDV INJECT SCH (07:09)
[2025-02-10] MEDS: Tetracaine HCl/PF 0.5% 4 ML Bottle EYEBOTH SCH (07:09)
[2025-02-10] MEDS: Cefuroxime 10 MG/ML SYRINGE EYELF SCH (07:09)
[2025-02-10] MEDS: Polymyxin B/Trimethoprim 10 ML Bottle EYELF SCH (07:10)
[2025-02-10] MEDS: Pilocarpine 4% Ophth Soln 15 ML Bot EYELF SCH (07:10)
[2025-02-10] MEDS: Tropicamide 1% Ophth Soln 3 ML Bottle EYELF SCH (10:34)
[2025-02-10 12:41] VITALS: BP 138/70; PULSE 75
== END 2025-02-10 12:38 | disposition home or self-care (01) ==
LOC: JD.SDS 09:59
PROVIDERS: ATTEND Ophthalmology
DX: E11.36 Type 2 diabetes mellitus with diabetic cataract (principal); H25.813 Combined forms of age-related cataract, bilateral; H21.81 Floppy iris syndrome; H21.40 Pupillary membranes, unspecified eye; E11.3293 Type 2 diabetes mellitus with mild nonproliferative diabetic retinopathy without macular edema, bilateral; H02.834 Dermatochalasis of left upper eyelid; H02.831 Dermatochalasis of right upper eyelid; H57.813 Brow ptosis, bilateral; H11.153 Pinguecula, bilateral; E66.9 Obesity, unspecified; I25.10 Atherosclerotic heart disease of native coronary artery without angina pectoris; I11.0 Hypertensive heart disease with heart failure; I50.9 Heart failure, unspecified; Z88.8 Allergy status to other drugs, medicaments and biological substances; Z79.84 Long term (current) use of oral hypoglycemic drugs; Z79.899 Other long term (current) drug therapy; Z91.013 Allergy to seafood; Z91.030 Bee allergy status; Z68.30 Body mass index [BMI] 30.0-30.9, adult; Z79.82 Long term (current) use of aspirin
CPT/HCPCS: 66982; A9270; J0697; J3490

== ENCOUNTER 2025-03-10 10:25 | Day surgery (SDC) | payer MEDICARE, OTHER ==
[2025-03-10] MEDS: Polymyxin B/Trimethoprim 10 ML Bottle EYERT SCH (10:36)
[2025-03-10 10:39] VITALS: BP 143/71; PULSE 79
[2025-03-10] MEDS: Tropicamide 1% Ophth Soln 3 ML Bottle EYERT SCH (10:52)
[2025-03-10] MEDS: Tetracaine HCl/PF 0.5% 4 ML Bottle EYEBOTH SCH (12:04)
[2025-03-10] MEDS: Lidocaine 1% PF 2 ML SDV INJECT SCH (12:29)
[2025-03-10] MEDS: Cefuroxime 10 MG/ML SYRINGE EYERT SCH (12:33)
[2025-03-10] MEDS: Pilocarpine 4% Ophth Soln 15 ML Bot EYERT SCH (12:43)
== END 2025-03-10 12:52 ==
LOC: JD.SDS 10:25
PROVIDERS: ATTEND Ophthalmology
DX: E11.36 Type 2 diabetes mellitus with diabetic cataract (principal); H25.811 Combined forms of age-related cataract, right eye; E11.3293 Type 2 diabetes mellitus with mild nonproliferative diabetic retinopathy without macular edema, bilateral; H21.81 Floppy iris syndrome; H21.40 Pupillary membranes, unspecified eye; H02.834 Dermatochalasis of left upper eyelid; H02.831 Dermatochalasis of right upper eyelid; H57.813 Brow ptosis, bilateral; H11.153 Pinguecula, bilateral; Z91.013 Allergy to seafood; Z91.030 Bee allergy status; Z79.84 Long term (current) use of oral hypoglycemic drugs; Z79.899 Other long term (current) drug therapy
CPT/HCPCS: 66982; A9270; J0697; J2003; 00142; 99100; J3490; V2632

== ENCOUNTER 2025-04-14 10:45 | Emergency (ER) | payer MEDICARE, OTHER ==
[2025-04-14 11:06] VITALS: BP 128/62; PULSE 76
[2025-04-14 11:36] LABS: BASOPHILS ABSOLUTE AUTO 0.0 K/mm3 (0.0-0.2); BASOPHILS PERCENT AUTO 0.5 % (0.0-1.0); EOSINOPHILS ABSOLUTE AUTO 0.1 K/mm3 (0.0-0.4); EOSINOPHILS PERCENT AUTO 1.7 % (0.0-6.0); IMMATURE GRAN ABSOLUTE AUTO 0.02 K/mm3 (0.00-0.05); IMMATURE GRAN PERCENT AUTO 0.5 % (0.0-0.4); LYMPHOCYTES ABSOLUTE AUTO 0.5 K/mm3 (1.0-4.8); LYMPHOCYTES PERCENT AUTO 11.9 % (24.0-44.0); MEAN PLATELET VOLUME 8.7 fl (9.4-12.4); MONOCYTES ABSOLUTE AUTO 0.4 K/mm3 (0.0-0.8); MONOCYTES PERCENT AUTO 9.9 % (0.0-8.0); NEUTROPHILS ABSOLUTE AUTO 3.1 K/mm3 (1.8-7.7); NEUTROPHILS PERCENT AUTO 75.5 % (41.0-71.0); NRBC ABSOLUTE 0.00 (0.00-0.02); NRBC PERCENT 0.0 % (0.0-0.2); PLATELET COUNT,PLT 169 K/mm3 (150-400); RED BLOOD CELL COUNT 3.59 M/mm3 (4.52-5.90); WHITE BLOOD CELL COUNT,WBC 4.04 K/mm3 (3.9-11.3)
[2025-04-14] MEDS: Alum Hydrox/Mag Hydrox/Simeth 30 ML, Lidocaine 2% 15 ML PO ONE (11:53)
[2025-04-14 11:59] LABS: A/G RATIO 0.7 (1-2); ALANINE AMINOTRANSFERASE,ALT 20.0 U/L (16-63); ASPARTATE AMNIOTRANSFERASE,AST 28.0 U/L (15-37); BILIRUBIN TOTAL 0.6 mg/dL (0.2-1.0); BLOOD UREA NITROGEN,BUN 15.0 mg/dL (7-18); CARBON DIOXIDE,CO2 24.0 mEq/L (21-32); CHLORIDE,CL 106.0 mEq/L (98-107); CREATININE 1.1 mg/dL (0.7-1.3); EST CRCL DRUG DOSING (CG) 57.86 mL/min; ESTIMATED GFR 71.0 mL/min (>60); GLUCOSE RANDOM 144.0 mg/dL (70-99); POTASSIUM,K 3.9 mEq/L (3.5-5.1); PROTEIN TOTAL,TP 6.9 g/dl (6.4-8.2); SODIUM,NA 138.0 mEq/L (136-145)
[2025-04-14 12:56] LABS: APPEARANCE,URINE CLEAR (Clear); GLUCOSE,URINE NEGATIVE (Negative); OCCULT BLOOD,URINE NEGATIVE (Negative)
[2025-04-14] MEDS: Iopamidol 755 Mg/ML 100 ML Bottle IVPUSH ONE (13:06)
[2025-04-14] MEDS: Sodium Chloride 0.9% 10 ML Syringe FLUSH PRN (13:06)
[2025-04-14] MEDS: Sucralfate Suspension 1 GM/10 ML Cup PO ONE (14:30)
== END 2025-04-14 15:47 | disposition home or self-care (01) ==
LOC: JD.ED 10:45
DX: K21.9 Gastro-esophageal reflux disease without esophagitis (principal); K76.9 Liver disease, unspecified; D64.9 Anemia, unspecified; I10 Essential (primary) hypertension; I25.10 Atherosclerotic heart disease of native coronary artery without angina pectoris; I25.2 Old myocardial infarction; E78.00 Pure hypercholesterolemia, unspecified; E11.9 Type 2 diabetes mellitus without complications; E66.9 Obesity, unspecified; Z86.16 Personal history of COVID-19; Z79.84 Long term (current) use of oral hypoglycemic drugs; Z79.899 Other long term (current) drug therapy; Z79.82 Long term (current) use of aspirin; Z91.030 Bee allergy status; Z91.013 Allergy to seafood; Z88.8 Allergy status to other drugs, medicaments and biological substances; Z68.32 Body mass index [BMI] 32.0-32.9, adult; Z87.891 Personal history of nicotine dependence
CPT/HCPCS: 36415; 74170; 76705; 80053; 81003; 83690; 85025; 99284; A9270; Q9967

== ENCOUNTER 2025-04-27 13:08 | Emergency (ER) | payer MEDICARE, OTHER ==
[2025-04-27] MEDS ORDERED: Sodium Chloride 0.9% 10 ML Syringe FLUSH PRN (14:21)
[2025-04-27] MEDS: Alum Hydrox/Mag Hydrox/Simeth 30 ML, Lidocaine 2% 15 ML PO ONE (14:31)
[2025-04-27 15:07] LABS: APPEARANCE,URINE CLEAR (Clear); GLUCOSE,URINE NEGATIVE (Negative); OCCULT BLOOD,URINE NEGATIVE (Negative)
[2025-04-27 15:08] LABS: BASOPHILS ABSOLUTE AUTO 0.0 K/mm3 (0.0-0.2); BASOPHILS PERCENT AUTO 0.3 % (0.0-1.0); EOSINOPHILS ABSOLUTE AUTO 0.1 K/mm3 (0.0-0.4); EOSINOPHILS PERCENT AUTO 1.7 % (0.0-6.0); IMMATURE GRAN ABSOLUTE AUTO 0.01 K/mm3 (0.00-0.05); IMMATURE GRAN PERCENT AUTO 0.3 % (0.0-0.4); LYMPHOCYTES ABSOLUTE AUTO 0.6 K/mm3 (1.0-4.8); LYMPHOCYTES PERCENT AUTO 15.5 % (24.0-44.0); MEAN PLATELET VOLUME 9.3 fl (9.4-12.4); MONOCYTES ABSOLUTE AUTO 0.4 K/mm3 (0.0-0.8); MONOCYTES PERCENT AUTO 10.2 % (0.0-8.0); NEUTROPHILS ABSOLUTE AUTO 2.6 K/mm3 (1.8-7.7); NEUTROPHILS PERCENT AUTO 72.0 % (41.0-71.0); NRBC ABSOLUTE 0.00 (0.00-0.02); NRBC PERCENT 0.0 % (0.0-0.2); PLATELET COUNT,PLT 213 K/mm3 (150-400); RED BLOOD CELL COUNT 3.07 M/mm3 (4.52-5.90); WHITE BLOOD CELL COUNT,WBC 3.62 K/mm3 (3.9-11.3)
[2025-04-27 15:32] LABS: A/G RATIO 0.8 (1-2); ALANINE AMINOTRANSFERASE,ALT 21.0 U/L (16-63); ASPARTATE AMNIOTRANSFERASE,AST 33.0 U/L (15-37); BILIRUBIN TOTAL 0.6 mg/dL (0.2-1.0); BLOOD UREA NITROGEN,BUN 19.0 mg/dL (7-18); CARBON DIOXIDE,CO2 21.0 mEq/L (21-32); CHLORIDE,CL 107.0 mEq/L (98-107); CREATININE 1.0 mg/dL (0.7-1.3); EST CRCL DRUG DOSING (CG) 63.65 mL/min; ESTIMATED GFR 79.0 mL/min (>60); GLUCOSE RANDOM 88.0 mg/dL (70-99); POTASSIUM,K 4.1 mEq/L (3.5-5.1); PROTEIN TOTAL,TP 6.9 g/dl (6.4-8.2); SODIUM,NA 140.0 mEq/L (136-145)
[2025-04-27] MEDS: Sodium Chloride 0.9% 10 ML Syringe FLUSH PRN (15:52)
[2025-04-27] MEDS: Iopamidol 612 MG/ML 100 ML Bottle IVPUSH ONE (15:52)
[2025-04-27] MEDS ORDERED: Naloxone 0.4 MG/ML SDV IVPUSH PRN (23:24)
[2025-04-28 01:53] VITALS: BP 149/90; PULSE 87
== END 2025-04-28 02:00 | disposition home or self-care (01) ==
LOC: JD.ED 13:08
DX: R10.13 Epigastric pain (principal); D64.9 Anemia, unspecified; I25.10 Atherosclerotic heart disease of native coronary artery without angina pectoris; I25.2 Old myocardial infarction; I10 Essential (primary) hypertension; M19.90 Unspecified osteoarthritis, unspecified site; E11.9 Type 2 diabetes mellitus without complications; E66.9 Obesity, unspecified; Z68.32 Body mass index [BMI] 32.0-32.9, adult; Z86.16 Personal history of COVID-19; Z87.891 Personal history of nicotine dependence; Z88.8 Allergy status to other drugs, medicaments and biological substances; Z91.030 Bee allergy status; Z91.013 Allergy to seafood; Z79.84 Long term (current) use of oral hypoglycemic drugs; Z79.82 Long term (current) use of aspirin; Z79.899 Other long term (current) drug therapy
CPT/HCPCS: 36415; 36430; 74177; 80053; 81003; 83690; 85025; 86850; 86900; 86901; 86922; 93005; 96361; 96374; 96376; 99284; A9270; J1171; J7030; P9016; Q9967; 93010

== ENCOUNTER 2025-06-24 13:44 | Emergency (ER) | payer MEDICARE, OTHER ==
[2025-06-24 14:32] LABS: BASOPHILS ABSOLUTE AUTO 0.0 K/mm3 (0.0-0.2); BASOPHILS PERCENT AUTO 0.4 % (0.0-1.0); EOSINOPHILS ABSOLUTE AUTO 0.0 K/mm3 (0.0-0.4); EOSINOPHILS PERCENT AUTO 0.0 % (0.0-6.0); IMMATURE GRAN ABSOLUTE AUTO 0.01 K/mm3 (0.00-0.05); IMMATURE GRAN PERCENT AUTO 0.2 % (0.0-0.4); LYMPHOCYTES ABSOLUTE AUTO 0.4 K/mm3 (1.0-4.8); LYMPHOCYTES PERCENT AUTO 9.1 % (24.0-44.0); MEAN PLATELET VOLUME 9.3 fl (9.4-12.4); MONOCYTES ABSOLUTE AUTO 0.3 K/mm3 (0.0-0.8); MONOCYTES PERCENT AUTO 6.4 % (0.0-8.0); NEUTROPHILS ABSOLUTE AUTO 4.0 K/mm3 (1.8-7.7); NEUTROPHILS PERCENT AUTO 83.9 % (41.0-71.0); NRBC ABSOLUTE 0.00 (0.00-0.02); NRBC PERCENT 0.0 % (0.0-0.2); PLATELET COUNT,PLT 198 K/mm3 (150-400); RED BLOOD CELL COUNT 3.63 M/mm3 (4.52-5.90); WHITE BLOOD CELL COUNT,WBC 4.82 K/mm3 (3.9-11.3)
[2025-06-24 14:53] LABS: A/G RATIO 0.6 (1-2); ALANINE AMINOTRANSFERASE,ALT 15.0 U/L (16-63); ASPARTATE AMNIOTRANSFERASE,AST 18.0 U/L (15-37); BILIRUBIN TOTAL 0.6 mg/dL (0.2-1.0); BLOOD UREA NITROGEN,BUN 19.0 mg/dL (7-18); CARBON DIOXIDE,CO2 22.0 mEq/L (21-32); CHLORIDE,CL 104.0 mEq/L (98-107); CREATININE 1.0 mg/dL (0.7-1.3); EST CRCL DRUG DOSING (CG) 63.65 mL/min; ESTIMATED GFR 79.0 mL/min (>60); GLUCOSE RANDOM 156.0 mg/dL (70-99); POTASSIUM,K 4.1 mEq/L (3.5-5.1); PROTEIN TOTAL,TP 7.2 g/dl (6.4-8.2); SODIUM,NA 138.0 mEq/L (136-145)
[2025-06-24] MEDS: Sodium Chloride 0.9% 10 ML Syringe FLUSH PRN (15:21)
[2025-06-24 16:43] VITALS: BP 130/68; PULSE 69
== END 2025-06-24 16:15 | disposition home or self-care (01) ==
LOC: JD.ED 13:44
DX: I48.0 Paroxysmal atrial fibrillation (principal); R42 Dizziness and giddiness; I10 Essential (primary) hypertension; I25.810 Atherosclerosis of coronary artery bypass graft(s) without angina pectoris; E66.9 Obesity, unspecified; E11.9 Type 2 diabetes mellitus without complications; Z91.013 Allergy to seafood; Z91.030 Bee allergy status; Z88.8 Allergy status to other drugs, medicaments and biological substances; Z79.82 Long term (current) use of aspirin; Z79.84 Long term (current) use of oral hypoglycemic drugs; Z79.899 Other long term (current) drug therapy; Z86.16 Personal history of COVID-19
CPT/HCPCS: 36415; 71046; 80053; 83735; 84484; 85025; 93005; 99284; A9270; J7030; 93010